=== PATIENT | female | born 1985 | race Caucasian/White ===

== ENCOUNTER → 2018-12-06 | Outpatient (CLI) | payer MEDICAID ==
[2018-12-06 15:19] LABS: BASO % 0.4 % (0.0-1.0); EOS # 0.2 10^3/uL (0.0-0.5); EOS % 2.1 % (0.0-3.0); HEMATOCRIT 41.1 % (36.0-47.0); HEMOGLOBIN 13.8 g/dl (12.0-15.5); LYMPH # 2.6 10^3/uL (1.5-5.0); LYMPH % 34.9 % (24.0-44.0); MEAN CORPUSCULAR HEMOGLOBIN 31.9 pg (27.0-33.0); MEAN CORPUSCULAR HGB CONC 33.6 g/dl (32.0-36.5); MEAN CORPUSCULAR VOLUME 95.1 fl (80.0-96.0); MONO # 0.7 10^3/uL (0.0-0.8); MONO % 9.7 % (0.0-5.0); NEUTROPHILS # 3.9 10^3/uL (1.5-8.5); PLATELET COUNT, AUTOMATED 144 10^3/uL (150-450); RED BLOOD COUNT 4.32 10^6/uL (4.00-5.40); WHITE BLOOD COUNT 7.5 10^3/uL (4.0-10.0)
[2018-12-06 15:54] LABS: ALBUMIN 3.2 GM/DL (3.2-5.2); ALT/SGPT 299 U/L (12-78); BILIRUBIN,TOTAL 0.3 MG/DL (0.2-1.0); BLOOD UREA NITROGEN 16 MG/DL (7-18); CALCIUM LEVEL 8.4 MG/DL (8.5-10.1); CARBON DIOXIDE LEVEL 27 MEQ/L (21-32); CHLORIDE LEVEL 108 MEQ/L (98-107); CREATININE FOR GFR 0.63 MG/DL (0.55-1.30); GLOMERULAR FILTRATION RATE > 60.0 (>60); GLUCOSE, FASTING 83 MG/DL (70-100); SODIUM LEVEL 143 MEQ/L (136-145); THYROID STIMULATING HORMONE 0.521 uIU/ML (0.358-3.740); TOTAL PROTEIN 6.3 GM/DL (6.4-8.2)
== END ==
LOC: M LAB 14:00
PROVIDERS: ATTEND Nurse Practitioner Family
DX: F11.20 Opioid dependence, uncomplicated (principal)

== ENCOUNTER → 2019-07-11 | Outpatient (CLI) | payer MEDICAID, OTHER ==
[~2019-07-11] MED LIST: BUPR1FIL5; BUSP30TA; BUSP30TA PO; ESCI20TA16; ESCI20TA16 PO; FERR325T3 PO; OLAN15TA; OLAN15TA PO; OMEP-218 PO; ONDA-83; ONDA-83 PO; PANT40TA29 PO; SUBO2MIS SL; SUBO8MIS SL; SUCR1TA PO; VITACHTA PO
[2019-07-11 15:13] LABS: HEMATOCRIT 37.4 % (36.0-47.0); HEMOGLOBIN 12.3 g/dl (12.0-15.5); MEAN CORPUSCULAR HGB CONC 32.9 g/dl (32.0-36.5); MEAN CORPUSCULAR VOLUME 91.2 fl (80.0-96.0); PLATELET COUNT, AUTOMATED 170 10^3/uL (150-450); WHITE BLOOD COUNT 6.6 10^3/uL (4.0-10.0)
[2019-07-11 15:24] LABS: ALBUMIN 3.4 GM/DL (3.2-5.2); ALT/SGPT 358 U/L (12-78); BILIRUBIN,TOTAL 0.3 MG/DL (0.2-1.0); BLOOD UREA NITROGEN 19 MG/DL (7-18); CARBON DIOXIDE LEVEL 27 MEQ/L (21-32); CHLORIDE LEVEL 107 MEQ/L (98-107); CREATININE FOR GFR 0.76 MG/DL (0.55-1.30); GLOMERULAR FILTRATION RATE > 60.0 (>60); GLUCOSE, FASTING 113 MG/DL (70-100); POTASSIUM SERUM 4.1 MEQ/L (3.5-5.1); SODIUM LEVEL 141 MEQ/L (136-145); TOTAL PROTEIN 6.8 GM/DL (6.4-8.2)
[2019-07-11 16:59] LABS: CHLAMYDIA DNA AMPLIFICATION NEGATIVE (NEGATIVE); GC DNA AMPLIFICATION NEGATIVE (NEGATIVE)
[2019-07-11 19:13] LABS: HCG, SERUM QUALITATIVE NEGATIVE (NEGATIVE)
--- NOTE | 2019-07-11 19:20 | ECGEPIP ---
[facility] Test Date: 2019-07-11 Pat Name: JERRY PROCTOR Department: Room: - Gender: Female Exhibits Manager: MIYA : 1985 Requested By: Wesley Hernandez Order Number: [id number] Reading MD: Raine Chopra Measurements Intervals [place] Rate: 70 P: 27 KS: 154 QRS: 44 QRSD: 92 T: 18 QT: 396 QTc: 428 Interpretive Statements SINUS RHYTHM NO PRIOR Electronically Signed on 07-11-2019 19:19:49 EDT by Raine Chopra
[2019-07-12 10:09] LABS: HEPATITIS B SURFACE ANTIGEN NEGATIVE (NEGATIVE)
[2019-07-12 10:37] LABS: HIV 1&2 SCREEN CENTAUR NEGATIVE (NEGATIVE)
[2019-07-12 10:45] LABS: HEPATITIS C VIRUS ABY INDEX > 11.0 INDEX (<0.8)
== END ==
LOC: M LAB 14:14
PROVIDERS: ATTEND Family Medicine
DX: F11.20 Opioid dependence, uncomplicated (principal)

== ENCOUNTER → 2019-07-25 | Outpatient (REF) | payer OTHER, MEDICAID ==
[2019-07-25 18:58] LABS: BASO % 0.3 % (0.0-1.0); EOS # 0.1 10^3/uL (0.0-0.5); EOS % 1.2 % (0.0-3.0); HEMATOCRIT 37.3 % (36.0-47.0); HEMOGLOBIN 12.3 g/dl (12.0-15.5); LYMPH # 2.5 10^3/uL (1.5-5.0); LYMPH % 32.7 % (24.0-44.0); MONO # 0.7 10^3/uL (0.0-0.8); MONO % 9.2 % (0.0-5.0); NEUTROPHILS # 4.2 10^3/uL (1.5-8.5); NEUTROPHILS % 56.2 % (36.0-66.0); PLATELET COUNT, AUTOMATED 178 10^3/uL (150-450); WHITE BLOOD COUNT 7.5 10^3/uL (4.0-10.0)
[2019-07-25 19:02] LABS: ALBUMIN 3.6 GM/DL (3.2-5.2); ALT/SGPT 285 U/L (12-78); BILIRUBIN,TOTAL 0.3 MG/DL (0.2-1.0); BLOOD UREA NITROGEN 15 MG/DL (7-18); CALCIUM LEVEL 9.1 MG/DL (8.5-10.1); CARBON DIOXIDE LEVEL 29 MEQ/L (21-32); CHLORIDE LEVEL 108 MEQ/L (98-107); GLOMERULAR FILTRATION RATE > 60.0 (>60); GLUCOSE, FASTING 93 MG/DL (70-100); POTASSIUM SERUM 4.2 MEQ/L (3.5-5.1); SODIUM LEVEL 145 MEQ/L (136-145); TOTAL PROTEIN 7.2 GM/DL (6.4-8.2)
== END ==
LOC: M LAB REF 18:14
PROVIDERS: ATTEND Family Medicine Addiction Medicine
DX: B18.2 Chronic viral hepatitis C (principal)

== ENCOUNTER 2019-11-15 22:23 | Inpatient (IN) | payer MEDICAID, OTHER ==
[~2019-11-15] VITALS: Ht 157.5 cm; Wt 122.3 kg
[2019-11-15] MEDS ORDERED: OLAN15TA (22:33)
[2019-11-15] MEDS ORDERED: ONDA-83 (22:33)
[2019-11-15] MEDS ORDERED: ESCI20TA (22:33)
[2019-11-15] MEDS ORDERED: BUSP30TA (22:33)
[2019-11-15] MEDS ORDERED: BUPR1FIL5 (22:33)
[2019-11-16] VITALS (21 sets, daily range): BP systolic 90–146; BP diastolic 44–82
[2019-11-16] MEDS: ALBUTEROL 90 MCG/ACT 8GM HFA INHALER INH SCH ×2 (00:02→00:36)
[2019-11-16 00:24] LABS: AMPHETAMINES LEVEL URINE NEGATIVE (NEGATIVE); BARBITURATES URINE NEGATIVE (NEGATIVE); BENZODIAZEPINES URINE NEGATIVE (NEGATIVE); CANNABINOIDS URINE POSITIVE (NEGATIVE); COCAINE METABOLITE URINE NEGATIVE (NEGATIVE); METHADONE URINE NEGATIVE (NEGATIVE); OPIATES URINE NEGATIVE (NEGATIVE); PHENCYCLIDINE URINE NEGATIVE (NEGATIVE)
[2019-11-16 00:40] LABS: ALT/SGPT 104 U/L (12-78); BASO % 0.1 % (0.0-1.0); BILIRUBIN,DIRECT 0.2 MG/DL (0.0-0.2); BILIRUBIN,TOTAL 0.3 MG/DL (0.2-1.0); BLOOD UREA NITROGEN 16 MG/DL (7-18); CALCIUM LEVEL 8.7 MG/DL (8.5-10.1); CARBON DIOXIDE LEVEL 28 MEQ/L (21-32); CHLORIDE LEVEL 106 MEQ/L (98-107); CK-MB VALUE MASS 1.8 NG/ML (<3.6); CPK CREATINE PHOSPHOKINASE 96 U/L (26-192); CREATININE FOR GFR 0.64 MG/DL (0.55-1.30); EOS # 0.2 10^3/uL (0.0-0.5); GLOMERULAR FILTRATION RATE > 60.0 (>60); GLUCOSE, FASTING 110 MG/DL (70-100); LIPASE 62 U/L (73-393); LYMPH # 3.1 10^3/uL (1.5-5.0); LYMPH % 35.9 % (24.0-44.0); MB/CK RELATIVE INDEX 1.88 (< OR =4); MEAN CORPUSCULAR HEMOGLOBIN 17.8 pg (27.0-33.0); MEAN CORPUSCULAR HGB CONC 26.3 g/dl (32.0-36.5); MEAN CORPUSCULAR VOLUME 67.8 fl (80.0-96.0); MONO # 0.9 10^3/uL (0.0-0.8); MONO % 10.2 % (0.0-5.0); NEUTROPHILS # 4.4 10^3/uL (1.5-8.5); NEUTROPHILS % 51.3 % (36.0-66.0); NT-PRO BNP 118 PG/ML (<125); PLATELET COUNT, AUTOMATED 149 10^3/uL (150-450); POTASSIUM SERUM 3.9 MEQ/L (3.5-5.1); RED BLOOD COUNT 2.58 10^6/uL (4.00-5.40); SODIUM LEVEL 139 MEQ/L (136-145); TOTAL PROTEIN 6.7 GM/DL (6.4-8.2); TROPONIN I 0.02 NG/ML (< 0.10); WHITE BLOOD COUNT 8.6 10^3/uL (4.0-10.0)
[2019-11-16 00:49] LABS: HEMOGLOBIN 4.6 g/dl (12.0-15.5)
[2019-11-16 00:50] LABS: HEMATOCRIT 17.5 % (36.0-47.0)
--- NOTE | 2019-11-16 01:21 | REPVR ---
PROCEDURE INFORMATION: Exam: XR Chest, 1 View Exam date and time: 11/16/2019 12:07 AM Age: 34 years old Clinical indication: Other: SOB TECHNIQUE: Imaging protocol: XR of the chest Views: 1 view. COMPARISON: No relevant prior studies available. FINDINGS: Lungs: Unremarkable. No consolidation. Pleural space: Unremarkable. No pleural effusion. No pneumothorax. Heart/Mediastinum: Unremarkable. No cardiomegaly. Bones/joints: Unremarkable. IMPRESSION: No acute findings. Electronically signed by: Dennis Maldonado On 11/16/2019 01:20:40 AM
[2019-11-16 01:30] LABS: FERRITIN 4 NG/ML (8-252); HCG, SERUM QUALITATIVE NEGATIVE (NEGATIVE); IRON (FE) 13 UG/DL (50-170); PERCENT SATURATION 2.4 % (13.2-45.0); TOTAL IRON BINDING CAPACITY 540 UG/DL (250-450)
[2019-11-16] MEDS ORDERED: ESCI20TA PO (01:37)
[2019-11-16] MEDS ORDERED: VITACHTA PO (01:37)
[2019-11-16] MEDS ORDERED: SUBO2MIS SL ×2 (01:37→01:38)
[2019-11-16] MEDS ORDERED: OMEP-218 PO (01:37)
[2019-11-16] MEDS ORDERED: ONDA-83 PO (01:37)
[2019-11-16] MEDS ORDERED: OLAN15TA PO (01:37)
[2019-11-16] MEDS ORDERED: BUSP30TA PO (01:37)
[2019-11-16] MEDS ORDERED: NS 1,000 ML IV ONE (02:30)
[2019-11-16] MEDS ORDERED: ONDANSETRON 4MG/2ML VIAL IV PRN (02:30)
[2019-11-16] MEDS ORDERED: ACETAMINOPHEN TAB 650MG DOSE (2X325MG) PO PRN (02:30)
[2019-11-16] MEDS ORDERED: OLANZapine 10 MG TAB As Ordered ONE (03:27)
--- NOTE | 2019-11-16 03:30 | HPEPDOC ---
[facility] Medical History & Physical Date of Admission Nov 16, 2019 Date of Service: Nov 16, 2019 Attending Physician: TEENA RANDLE MD History and Physical CHIEF COMPLAINT: Shortness of breath HISTORY OF PRESENT ILLNESS: Patient is a 34 year old female presenting with a week long history of progressively worsening SOB, dyspnea on exertion, and fatigue along with nausea, non-bloody, intermittently bilious emesis 3-4x/day, loose watery, but sometimes black stool 5-6x/day. She has felt some relief with Zofran, notes that the emesis only occurs in the morning, denies regular daytime marijuana use. She states she has felt fatigued for months, but denies any hemoptysis, hematemesis, hematuria, or hematochezia. She states her last menstrual period was over a year ago after the of her 3rd son, at which time her H/H was 12/37. She presented to the ED today because she began to feel increasingly dizzy with occasional black spots in her vision so she had a friend drive her here. Hgb on admission was 4.6 so the hospitalist service was contacted for admission. PAST MEDICAL HISTORY: Hx of asthma Chronic Hep C Bipolar disorder Hx of opiate use disorder nicotine use disorder PAST SURGICAL HISTORY: [place] teeth removal CSx3 appendectomy tonsils/adenoidectomy SOCIAL HISTORY: Lives in [place], smokes 1 PPD, does not drink EtOH, admits to prior hx of opiate use but has not used in a year, admits to smoking marijuana nightly to help her sleep, denies any cocaine, PCP use. No hx of recent or foreign travel. FAMILY HISTORY: Father- Mother- Stroke at age 30 for unknown reasons, T2DM, HTN ALLERGIES: Please see below. REVIEW OF SYSTEMS: Constitutional: Denies fevers, chills, night sweats, or recent unexpected weight change HEENT: Denies Headaches, head trauma, No visual changes or eye pain, denies nose bleeds, or difficulty swallowing Cardiovascular: Denies chest pain, palpitations, or orthopnea Respiratory: Denies cough, wheezing, or shortness of breath GI: Denies nausea, vomiting, abdominal pain, diarrhea or constipation : Denies pain with urination or frequency Musculoskeletal: Denies joint pain or swelling Neuro / Psych: Denies muscle weakness or sensory loss Skin: Denies skin rashes HOME MEDICATIONS: Please see below. PHYSICAL EXAMINATION: VITAL SIGNS: See below GENERAL: Well appearing female sitting upright in bed in no acute distress HEENT: NC, AT, EOMI, no scleral icterus, poor dentition, dry mucous membranes, no pharyngeal erythema. NECK: No cervical or supraclavicular lymphadenopathy. No JVD. CARDIOVASCULAR: RRR, normal S1 and S2. No murmurs, gallops, rubs. LUNGS: CTAB with full breath sounds, no wheezes, crackles, or rhonchi. ABDOMEN: Obese, soft, non-tender, non-distended, bowel sounds present. No hepatosplenomegaly. No masses or eccymosis. No CVA tenderness. EXTREMITIES: Mild 1+ pitting edema bilaterally assisted up tibia's. SKIN: No rashes or skin changes. NEUROLOGICAL: No focal or sensory deficits. CN II-XII grossly intact. PSYCHIATRIC: Normal mood and affect. LABORATORY DATA: See below. IMAGIN11/16/2019 CXR: IMPRESSION: No acute findings. MICROBIOLOGY: Please see below. Assessment/Plan: #. Chronic blood loss anemia -Stool guaiac positive with hx of melena so likely upper GI bleed. -Hemodynamically stable, this is more likely to have happened over a long period of time. Urgent/emergent GI intervention is not necessary currently. -Will plan to transfuse 4 units PRBCs -IV protonix BID -Will obtain imaging of CT abd/pelvis to insure no other causes for GI hemorrhage like slow variceal hemorrhage from portal HTN/liver cirrhosis though it may just be as simple as PUD #. N/V -Etiology unclear not associated with meals and no associated abd discomfort,ddx includes: viral gastroenteritis, brain tumor, cyclic vomiting syndrome from marijuana use -Obtain CT head to r/o brain tumor given the timing of N/V -Zofran for symptom management -Clear liquid diet #. Dehydration -2/2 vomiting/diarrhea, patients blood pressure is stable, will give gentle IVF hydration -Zofran for symptoms #. Microcytic Anemia -Low iron and ferritin levels, likely from blood loss -Patient may require IV iron transfusion to build up her stores again on top of PO iron replacement. #. Premature menopause -HCG negative, this should be worked-up further outpatient #. Chronic Hep C -Diagnosed >1 year ago, elevated viral count as of 06/2019, working w/ [facility] to set up treatment. #. Transaminitis -See Hep C #. Bipolar disorder -Continue home olanzapine, lexapro, buspar #.Opiate use disorder -Unable to verify at this time if patient is still receiving suboxone from [facility], will leave to day team about whether to continue medication DVT prophylaxis: teds/seqs Vital Signs Vital Signs Date Time Temp Pulse Resp B/P (MAP) Pulse Ox O2 Delivery O2 Flow Rate FiO2 11/16/19 02:51 96.2 88 17 132/62 99 Room Air Laboratory Data Labs 24H Laboratory Tests 2 11/15/19 23:20: Urine Opiates Screen NEGATIVE, Urine Methadone Screen NEGATIVE, Urine Barbiturates Screen NEGATIVE, Urine Phencyclidine Screen NEGATIVE, Urine Amphetamines Screen NEGATIVE, Urine Benzodiazepines Screen NEGATIVE, Urine Cocaine Metabolite Screen NEGATIVE, Urine Cannabinoids Screen POSITIVEH 11/16/19 00:01: Immature Granulocyte % (Auto) 0.5, Neutrophils (%) (Auto) 51.3, Lymphocytes (%) (Auto) 35.9, Monocytes (%) (Auto) 10.2H, Eosinophils (%) (Auto) 2.0, Basophils (%) (Auto) 0.1, Neutrophils # (Auto) 4.4, Lymphocytes # (Auto) 3.1, Monocytes # (Auto) 0.9H, Eosinophils # (Auto) 0.2, Basophils # (Auto) 0.0, Nucleated Red Blood Cells % (auto) 0.2H, Anion Gap 5L, Glomerular Filtration Rate > 60.0, Calcium Level 8.7, Iron Level 13L, Total Iron Binding Capacity 540H, Transferrin % Saturation 2.4L, Ferritin 4L, Total Bilirubin 0.3, Direct Bilirubin 0.2, Aspartate Amino Transf (AST/SGOT) 95H, Alanine Aminotransferase (ALT/SGPT) 104H, Alkaline Phosphatase 77, Total Creatine Kinase 96, Creatine Kinase MB 1.8, Creatine Kinase MB Relative Index 1.88, Troponin I 0.02, ZW-Hgi-V-Type Natriuret ic Peptide 118, Total Protein 6.7, Albumin 3.0L, Albumin/Globulin Ratio 0.8L, Lipase 62L, Human Chorionic Gonadotropin, Qual NEGATIVE CBC/BMP Laboratory Tests 11/16/19 00:01 Microbiology Microbiology 11/15/19 Respiratory Virus Panel (PCR) (TAMARA) - Final, Complete Home Medications Scheduled Buprenorphine HCl/Naloxone HCl (Suboxone 2 mg-0.5 mg Sl Film) 1 Each Film, 1 STRIP SL DAILY Buspirone HCl (Buspirone HCl) 30 Mg Tablet, 30 MG PO BID Escitalopram Oxalate (Escitalopram Oxalate) 20 Mg Tablet, 20 MG PO DAILY Multivitamins (Child Chew Vitamin) 1 Each Tab.chew, 2 TAB PO DAILY Olanzapine (Olanzapine) 15 Mg Tablet, 15 MG PO QHS Omeprazole (Omeprazole) 20 Mg Capsule.dr, 20 MG PO DAILY Scheduled PRN Ondansetron HCl (Ondansetron HCl) 4 Mg Tablet, 4 MG PO BID PRN for NAUSEA Allergies Coded Allergies: Penicillins (Verified Allergy, Unknown, 11/15/19) HAD SINCE A BABY amoxicillin (Verified Allergy, Unknown, 11/15/19) HAD SINCE A BABY GME ATTESTATION GME ATTESTATION My faculty preceptor for this patient encounter was physically present during the encounter and was fully available. All aspects of the patient interview, examination, medical decision making process, and medical care plan development were reviewed and approved by the faculty preceptor. The faculty preceptor is aware and concurs with the plan as stated in the body of this note and will attest to such by his/her cosignature. ATTENDING NOTE I was present during the evaluation and examination of the patient by Dr. Hernández and we discussed her management as it is detailed above. Briefly, Ms. Fuller is a 34 yo W with a history of asthma, remote history of anemia, bipolar disorder, PSUD, untreated HCV with high viremia and chronic transaminitis who presented with exertional dyspnea, N/V/D and found to have symptomatic anemia with profound iron deficiency with evidence of likely a slow UGIB with +guaiac and reported melena. JHON HERNÁNDEZ DO Nov 16, 2019 03:30 TEENA RANDLE MD Nov 16, 2019 06:24
[2019-11-16] MEDS: OLANZapine 5 MG TAB PO SCH ×2 (03:39→20:28)
--- NOTE | 2019-11-16 05:29 | REPVR ---
PROCEDURE INFORMATION: Exam: CT Head Without Contrast Exam date and time: 11/16/2019 2:18 AM Age: 34 years old Clinical indication: Other: N&V; Additional info: N/v R/O brain tumor TECHNIQUE: Imaging protocol: Computed tomography of the head without contrast. Radiation optimization: All CT scans at this facility use at least one of these dose optimization techniques: automated exposure control; mA and/or kV adjustment per patient size (includes targeted exams where dose is matched to clinical indication); or iterative reconstruction. COMPARISON: No relevant prior studies available. FINDINGS: Brain: Normal. No hemorrhage. Unremarkable white matter. No mass effect. Ventricles: No ventriculomegaly. Bones/joints: Unremarkable. No acute fracture. Paranasal sinuses: Visualized sinuses are unremarkable. No fluid levels. Mastoid air cells: Visualized mastoid air cells are well aerated. Soft tissues: Unremarkable. IMPRESSION: No acute intracranial abnormality. Electronically signed by: Dennis Maldonado On 11/16/2019 05:28:21 AM
--- NOTE | 2019-11-16 05:33 | REPVR ---
PROCEDURE INFORMATION: Exam: CT Abdomen And Pelvis Without Contrast Exam date and time: 11/16/2019 2:18 AM Age: 34 years old Clinical indication: Nausea and vomiting; Additional info: N/v R/O brain tumor TECHNIQUE: Imaging protocol: Computed tomography of the abdomen and pelvis without contrast. Radiation optimization: All CT scans at this facility use at least one of these dose optimization techniques: automated exposure control; mA and/or kV adjustment per patient size (includes targeted exams where dose is matched to clinical indication); or iterative reconstruction. COMPARISON: No relevant prior studies available. FINDINGS: Lungs: Mild compressive atelectasis in the bilateral medial lower lobes. Calcified granuloma at the right base. Mediastinal space: Large hiatal hernia. Liver: Mild hepatomegaly. Gallbladder and bile ducts: Normal. No calcified stones. No ductal dilation. Pancreas: Normal. No ductal dilation. Spleen: Normal. No splenomegaly. Adrenals: Normal. No mass. Kidneys and ureters: Normal. No hydronephrosis. Stomach and bowel: Unremarkable. No obstruction. No mucosal thickening. Appendix: No evidence of appendicitis. Intraperitoneal space: Unremarkable. No free air. No significant fluid collection. Vasculature: Unremarkable. No abdominal aortic aneurysm. Lymph nodes: Unremarkable. No enlarged lymph nodes. Bladder: Distended urinary bladder. Reproductive: Unremarkable as visualized. Bones/joints: Mild multilevel degenerative disease of the thoracic spine. Soft tissues: Small fat containing umbilical hernia. IMPRESSION: Large hiatal hernia. Mild hepatomegaly. Electronically signed by: Dennis Maldonado On 11/16/2019 05:33:29 AM
[2019-11-16] MEDS: ESCITALOPRAM OXALATE 10 MG TAB (LEXAPRO) PO SCH (08:53)
[2019-11-16] MEDS: busPIRone 10 MG TAB PO SCH ×2 (08:53→20:28)
[2019-11-16] MEDS: PANTOPRAZOLE 40MG VIAL (C9113 PER 1) IV SCH ×2 (08:53→20:27)
[2019-11-16 09:22] LABS: HEMATOCRIT 24.2 % (36.0-47.0); MEAN CORPUSCULAR HEMOGLOBIN 20.9 pg (27.0-33.0); MEAN CORPUSCULAR HGB CONC 28.5 g/dl (32.0-36.5); MEAN CORPUSCULAR VOLUME 73.3 fl (80.0-96.0); PLATELET COUNT, AUTOMATED 125 10^3/uL (150-450)
[2019-11-16 09:37] LABS: HEMOGLOBIN 6.9 g/dl (12.0-15.5)
[2019-11-16 09:39] LABS: ALT/SGPT 98 U/L (12-78); BILIRUBIN,TOTAL 0.8 MG/DL (0.2-1.0); BLOOD UREA NITROGEN 12 MG/DL (7-18); CALCIUM LEVEL 8.5 MG/DL (8.5-10.1); CARBON DIOXIDE LEVEL 25 MEQ/L (21-32); CHLORIDE LEVEL 109 MEQ/L (98-107); CREATININE FOR GFR 0.58 MG/DL (0.55-1.30); GLOMERULAR FILTRATION RATE > 60.0 (>60); GLUCOSE, FASTING 91 MG/DL (70-100); POTASSIUM SERUM 4.2 MEQ/L (3.5-5.1); SODIUM LEVEL 141 MEQ/L (136-145); TOTAL PROTEIN 6.5 GM/DL (6.4-8.2)
[2019-11-16] MEDS ORDERED: SUBO8MIS SL (10:48)
[2019-11-16] MEDS: SUCRALFATE 1 GM TAB PO SCH ×3 (13:03→20:28)
--- NOTE | 2019-11-16 15:17 | IPNPDOC ---
Text Note Date of Service The patient was seen on 11/16/19. NOTE HPI: Ms. Fuller is a 34 yo Female that presented to the ED with complaints of dyspnea, fatigue, nausea, vomiting and diarrhea. SUBJECTIVE: Pt was seen in the ED awaiting admission. She states that she is feeling a little less fatigued than when she came in and that she has no nausea, vomiting, diarrhea, or shortness of breath. Pt is receiving her 4th unit of PRBCs. She also denies headache, fever, or chills. OBJECTIVE: VITAL SIGNS: please see below. GENERAL: Pt seen laying on stretcher in no acute distress but somnolent. HEENT: NC, AT, no scleral icterus, mucous membranes moist and pale, no pharyngeal erythema, poor dentition. CV: Regular rhythm, bradycardic at 50 bpm, no murmurs, rubs, or gallops. RESP: CTAB, no rales, rhonchi, or wheezes. ABDOMEN: Soft, obese, nontender, nondistended, bowel sounds present . EXTREMITIES: no bruising, non pitting edema of BL lower legs. PSYCH: Normal mood and affect. LABORATORY: please see below. MICROBIOLOGY: - RESPIRATORY PANEL (11/16/2019): Negative. IMAGING: -CXR (11/15/2019): Impression "No acute findings." -HEAD CT without contrast (11/16/2019): Impression "No acute intracranial abnormality." -CT ABD/PELVIS without contrast (11/16/2019): Impression "Large hiatal hernia. Mild hepatomegaly." ASSESSMENT/PLAN: Ms. Fuller is a 34 yo Female with a PMHx of asthma, chronic hepatitis C, bipolar disorder, nicotine use, marijuana use, and a history of opiate use, who presented to the ED complaining of shortness of breath, nausea, vomiting, and diarrhea, and was found to be severely anemic concerning for blood loss. #. Symptomatic microcytic anemia 2/2 to iron deficiency due to blood loss in diarrhea. -Stool guaiac positive and pt reported dark stools -Pt received 4 units of PRBCs -Dr. Denise consulted and suggested a scope but the patient refused, so Camelia ordered sucralfate and to monitor labs and if patient is stable, to follow up with him outpatient. -Continue to monitor labs. #. Nausea and vomiting. -Head CT ruled out brain tumor. Ddx still includes cyclic vomiting syndrome from marijuana vs viral gastroenteritis vs PUD. -Symptoms managed with zofran. -Clear liquid diet. #. Shortness of breath 2/2 to severe anemia vs asthma. -Pt does not report shortness of breath right now. -Pt states that she has used a nebulizer and rescue inhaler in the past but not recently because she "lost them" or "ran out of them." -Lungs CTAB, no wheezing. -Correcting anemia with PRBCs. -Continue to monitor. #. Dehydration 2/2 to vomiting and diarrhea. -BP is stable after IVF bolus and PRBC infusion. -Zofran for symptoms. #. Premature menopause -Requires further workup outpatient. -HCG negative. #. Chronic Hepatitis C -Pt working with [facility] to start treatment. #. Bipolar disorder -Continue home olanzapine, lexapro, buspar. #. Hx of opiate use disorder -Unable to obtain med history/dosage from [facility]. -Once patient admitted on floor will ask her to sign a release so that we can get that information. DVT Prophylaxis: TEDs and sequentials. GI Prophylaxis: IV Protonix BID. VS,Fishbone, I+O VS, Fishbone, I+O Laboratory Tests 11/16/19 00:01 11/16/19 08:44 Vital Signs Date Time Temp Pulse Resp B/P (MAP) Pulse Ox O2 Delivery O2 Flow Rate FiO2 11/16/19 13:00 97.0 56 16 115/57 98 Room Air I&O- Last 24 Hours up to 6 AM 11/16/19 06:00 Intake Total 400 ml Balance 400 ml GME ATTESTATION GME ATTESTATION My faculty preceptor for this patient encounter was physically present during the encounter and was fully available. All aspects of the patient interview, examination, medical decision making process, and medical care plan development were reviewed and approved by the faculty preceptor. The faculty preceptor is aware and concurs with the plan as stated in the body of this note and will attest to such by his/her cosignature. ATTENDING NOTE Pt was seen and examined by me personally with the residents/students. Agree with the above assessment plan. FIFI CERVANTES OMS-3 Nov 16, 2019 15:17 WILLIAM HERNANDEZ MD Nov 24, 2019 10:29
[2019-11-16 15:50] LABS: VITAMIN B12 LEVEL 574 PG/ML (247-911)
[2019-11-16 15:51] LABS: FOLATE 20.2 NG/ML (>5.4)
[2019-11-16 19:01] LABS: HEMATOCRIT 27.7 % (36.0-47.0); HEMOGLOBIN 8.3 g/dl (12.0-15.5)
[2019-11-17] VITALS: BP 159/88
[2019-11-17 04:00] VITALS: BP 138/61
[2019-11-17 07:40] LABS: HEMATOCRIT 31.5 % (36.0-47.0); HEMOGLOBIN 9.3 g/dl (12.0-15.5); MEAN CORPUSCULAR HEMOGLOBIN 22.4 pg (27.0-33.0); MEAN CORPUSCULAR HGB CONC 29.5 g/dl (32.0-36.5); MEAN CORPUSCULAR VOLUME 75.7 fl (80.0-96.0); PLATELET COUNT, AUTOMATED 132 10^3/uL (150-450); RED BLOOD COUNT 4.16 10^6/uL (4.00-5.40); WHITE BLOOD COUNT 7.1 10^3/uL (4.0-10.0)
[2019-11-17 08:00] VITALS: BP 142/72
[2019-11-17 08:09] LABS: ALBUMIN 3.2 GM/DL (3.2-5.2); ALT/SGPT 115 U/L (12-78); BILIRUBIN,TOTAL 0.7 MG/DL (0.2-1.0); BLOOD UREA NITROGEN 12 MG/DL (7-18); CARBON DIOXIDE LEVEL 29 MEQ/L (21-32); CHLORIDE LEVEL 109 MEQ/L (98-107); CREATININE FOR GFR 0.66 MG/DL (0.55-1.30); GLOMERULAR FILTRATION RATE > 60.0 (>60); GLUCOSE, FASTING 91 MG/DL (70-100); POTASSIUM SERUM 3.8 MEQ/L (3.5-5.1); SODIUM LEVEL 138 MEQ/L (136-145); TOTAL PROTEIN 7.1 GM/DL (6.4-8.2)
--- NOTE | 2019-11-17 08:47 | IPNPDOC ---
Text Note Date of Service The patient was seen on 11/17/19. NOTE HPI: Ms. Fuller is a 34 yo F that presented to the ED with complaints of petey rtness of breath, nausea, and diarrhea and was found to be very anemic. SUBJECTIVE: No acute events overnight. Pt states that she is feeling ok and she got a decent night's sleep. She denies any shortness of breath, nausea, vomiting, or diarrhea. She has received 4 units of PRBCs. She states that she is ambulating well without weakness or dizziness. She says she does not recall talking to the surgeon about endoscopy/colonoscopy yesterday, but states that if it is necessary she is willing to do it. OBJECTIVE: VITAL SIGNS: please see below. GENERAL: pt appears lying comfortably in bed in no acute distress. HEENT: NC, AT, EOMI, no scleral icterus, no pharyngeal erythema. NECK: no JVD or lymphadenopathy appreciated. CV: RRR, no murmurs, rubs, or gallops appreciated. RESP: CTAB, no rales, rhonchi, or wheezes. ABDOMEN: soft, obese, nontender, nondistended EXTREMITIES: non pitting edema BL lower extremities, no other swelling or edema PSYCH: Normal mood and affect. LABORATORY: please see below. MICROBIOLOGY: -Respiratory virus panel (11/15/2019): Negative. IMAGING: -CXR (11/15/2019): Impression "No acute findings." -HEAD CT without contrast (11/16/2019): Impression "No acute intracranial abnormality." -CT ABD/PELVIS without contrast (11/16/2019): Impression "Large hiatal hernia. Mild hepatomegaly." ASSESSMENT/PLAN: Ms. Fuller is a 34 yo F with a PMHx of asthma, chronic hepa titis C, bipolar disorder, nicotine use, marijuana use, and a history of opiate use, who presented to the ED complaining of shortness of breath, nausea, vomiting, and was found to be severely anemic concerning for blood loss. #. Symptomatic microcytic anemia 2/2 to iron deficiency due to blood loss in diarrhea. -Stool guaiac positive and pt reported dark stools. -Pt received 4 units PRBCs. -As per Camelia, if H&H remain stable possible follow up outpatient. -Continue to monitor labs. -Hgb 9.3 Hct 31.5 #. Nausea and vomiting. -Head CT ruled out brain tumor. Ddx includes cyclic vomiting syndrome from marijuana use vs viral gastroenteritis vs PUD. -Symptoms managed with Zofran. -Clear liquid diet. #. Shortness of breath 2/2 to severe anemia vs asthma. -Pt denies current shortness of breath. -Lungs CTAB, no wheezing. -Correcting anemia with PRBCs. -Continue to monitor. #. Dehydration 2/2 to vomiting and diarrhea. -BP is stable. -Zofran for symptoms. #. Premature menopause -Requires further workup outpatient. -HCG negative. #. Chronic Hepatitis C -Pt working with [facility] to start treatment. #. Bipolar disorder -Continue home olanzapine, lexapro, and buspar. #. Hx of opiate use disorder. -Work on obtaining record from [facility]. DVT Prophylaxis: TEDs and sequentials. GI Prophylaxis: IV Protonix BID. DISPOSITION: Discharge home once medically cleared. VS,Fishbone, I+O VS, Fishbone, I+O Laboratory Tests 11/16/19 08:44 11/16/19 18:44 11/17/19 07:26 Vital Signs Date Time Temp Pulse Resp B/P (MAP) Pulse Ox O2 Delivery O2 Flow Rate FiO2 11/17/19 04:00 97.3 61 18 138/61 (86) 97 Room Air I&O- Last 24 Hours up to 6 AM 11/17/19 06:00 Intake Total 2215 ml Output Total 700 ml Balance 1515 ml GME ATTESTATION GME ATTESTATION My faculty preceptor for this patient encounter was physically present during the encounter and was fully available. All aspects of the patient interview, examination, medical decision making process, and medical care plan development were reviewed and approved by the faculty preceptor. The faculty preceptor is aware and concurs with the plan as stated in the body of this note and will attest to such by his/her cosignature. FIFI CERVANTES OMS-3 Nov 17, 2019 08:32
[2019-11-17] MEDS: SUCRALFATE 1 GM TAB PO SCH ×2 (09:26→12:00)
[2019-11-17] MEDS: PANTOPRAZOLE 40MG VIAL (C9113 PER 1) IV SCH (09:26)
[2019-11-17] MEDS: busPIRone 10 MG TAB PO SCH (09:26)
[2019-11-17] MEDS: ESCITALOPRAM OXALATE 10 MG TAB (LEXAPRO) PO SCH (09:26)
[2019-11-17] MEDS ORDERED: SUCR1TA PO (10:44)
[2019-11-17] MEDS ORDERED: PANT40TA29 PO (10:44)
[2019-11-17] MEDS ORDERED: FERR325T3 PO (10:45)
--- NOTE | 2019-11-17 10:58 | IPNPDOC ---
Text Note Date of Service The patient was seen on 11/17/19. NOTE No acute events overnight. No complaints this am. Denies any nausea, emesis, SOB, or pains. No BM since admission. VSSAF NAD abd - soft, nt, nd labs - below A) 34y/o female with melanotic stool and chronic GI bleed likely secondary to PUD P) hgb has stabilized with 4 units, and there are no current signs of bleeding. I recommend d/c home, and follow up in office for outpatient scopes continue PPI as outpatient daily, and I encouraged her to stop caffeine, nicotine, and to take all her meds with food in her stomach. Follow up in office. Polo Denise VS,Daryn, I+O VS, Daryn I+O Laboratory Tests 11/16/19 18:44 11/17/19 07:26 Vital Signs Date Time Temp Pulse Resp B/P (MAP) Pulse Ox O2 Delivery O2 Flow Rate FiO2 11/17/19 08:00 98.5 72 19 142/72 (95) 94 Room Air I&O- Last 24 Hours up to 6 AM 11/17/19 06:00 Intake Total 2215 ml Output Total 700 ml Balance 1515 ml CASIMIRO DENISE DO Nov 17, 2019 10:58
--- NOTE | 2019-11-17 11:32 | DS.PDOC ---
Discharge Summary General Date of Admission Nov 16, 2019 at 01:49 Date of Discharge Nov 17, 2019 Attending Physician: WILLIAM HERNANDEZ MD Specialist/Consultants Involve: CASIMIRO DENISE DO Discharge Summary PROCEDURES PERFORMED DURING STAY: None. ADMITTING DIAGNOSES/DISCHARGE DIAGNOSES: 1. Symptomatic anemia 2. Chronic Hep C 3. Bipolar disorder 4. Hx of opiate use disorder 5. Nicotine use disorder 6. Asthma COMPLICATIONS/CHIEF COMPLAINT: Symptomatic Anemia. HISTORY OF PRESENT ILLNESS: Pt is a 34 yo F that presented to the ED with a week long history of worsening shortness of breath, dyspnea on exertion, fatigue, nausea, bilious emesis 3-4x/day, and loose watery "black" stools 5-6x/day. She stated that the fatigue has been present for a couple of months now. On day of presentation she felt increasingly dizzy and had occasional black spots in her vision so her friend drove her to the ED. Her last menstrual period was about 1 yr ago after her 3rd son was born. She denied any hemoptysis, hematemesis, hematuria, or hematochezia. Her Hgb was 4.6 and Hct 17.5. HOSPITAL COURSE/DISCHARGE PLAN: Pt was given 4 units PRBCs in the ED and her Hgb improved from 4.6 to 6.9 to 8.3. She did not have any episodes of vomiting or diarrhea while in the ED or while admitted. Stool guaiac was positive. Dr. Denise was consulted and came to the agreement with the patient that if her H&H remained stable he would hold off on any scope procedure and he started pt on sucralfate. Pt's nausea was controlled with Zofran. Her labs have remained stable, with a Hgb of 9.3 and Hct of 31.5 this morning (11/17/2019 at 07:26). Pt will be started on oral iron supplements as well as a PPI. Pt was advised to quit smoking, avoid caffeine and spicy foods. Pt to follow up with surgery outpatient as well as her PCP. DISCHARGE MEDICATIONS: Please see below. ALLERGIES: Please see below. PHYSICAL EXAMINATION ON DISCHARGE: VITAL SIGNS: Please see below. GENERAL: Pt appears lying comfortably in bed in no acute distress. HEENT: AT, NC, EOMI, no scleral icterus, no pharyngeal erythema. NECK: No JVD or lymphadenopathy appreciated. CARDIOVASCULAR EXAMINATION: RRR, no murmurs, rubs, or gallops, +S1 and S2. RESPIRATORY EXAMINATION: CTAB, no rales, rhonchi, or wheezes. ABDOMINAL EXAMINATION: soft, obese, nontender, nondistended, bowel sounds present all 4 quadrants. EXTREMITIES: No swelling or edema. SKIN: no new rashes or erythema. NEUROLOGICAL EXAMINATION: AAOx3, CN II-XII grossly intact PSYCHIATRIC EXAMINATION: Normal mood and affect. LABORATORY DATA: Please see below. IMAGING: -CXR (11/15/2019): Impression "No acute findings." -HEAD CT without contrast (11/16/2019): Impression "No acute intracranial abnormality." -CT ABD/PELVIS without contrast (11/16/2019): Impression "Large hiatal hernia. Mild hepatomegaly." PROGNOSIS: Good. ACTIVITY: As tolerated. DIET: Low fat, low cholesterol. DISPOSITION: Discharge home. DISCHARGE INSTRUCTIONS: 1. Follow up with PCP within 7 days. 2. Follow up with Dr. Denise within 7 days. 3. Return to hospital if symptoms return. DISCHARGE CONDITION: Stable. TIME SPENT ON DISCHARGE: Greater than 30 minutes. Vital Signs/I&Os Vital Signs Date Time Temp Pulse Resp B/P (MAP) Pulse Ox O2 Delivery O2 Flow Rate FiO2 11/17/19 08:00 98.5 72 19 142/72 (95) 94 Room Air I&O- Last 24 Hours up to 6 AM 11/17/19 06:00 Intake Total 2215 ml Output Total 700 ml Balance 1515 ml Laboratory Data Labs 24H Laboratory Tests 2 11/17/19 07:26: Nucleated Red Blood Cells % (auto) 0.0, Anion Gap 0L, Glomerular Filtration Rate > 60.0, Calcium Level 9.0, Total Bilirubin 0.7, Aspartate Amino Transf (AST/SGOT) 122H, Alanine Aminotransferase (ALT/SGPT) 115H, Alkaline Phosphatase 69, Total Protein 7.1, Albumin 3.2, Albumin/Globulin Ratio 0.8L CBC/BMP Laboratory Tests 11/16/19 18:44 11/17/19 07:26 Microbiology Microbiology 11/15/19 Respiratory Virus Panel (PCR) (TAMARA) - Final, Complete Discharge Medications Scheduled Buprenorphine HCl/Naloxone HCl (Suboxone 2 mg-0.5 mg Sl Film) 1 Each Film, 2 STRIP SL DAILY, (Reported) 12MG TOTAL DAILY Buprenorphine HCl/Naloxone HCl (Suboxone 8 mg-2 mg Sl Film) 1 Each Film, 1 STRIP SL DAILY, (Reported) 12MG TOTAL DAILY Buspirone HCl (Buspirone HCl) 30 Mg Tablet, 30 MG PO BID, (Reported) Escitalopram Oxalate (Escitalopram Oxalate) 20 Mg Tablet, 20 MG PO DAILY, (Reported) Ferrous Sulfate (Ferrous Sulfate) 325 Mg Tablet.dr, 325 MG PO Q8H Multivitamins (Child Chew Vitamin) 1 Each Tab.chew, 2 TAB PO DAILY, (Reported) Olanzapine (Olanzapine) 15 Mg Tablet, 15 MG PO QHS, (Reported) Pantoprazole Sodium (Pantoprazole Sodium) 40 Mg Tablet.dr, 40 MG PO BID Sucralfate (Sucralfate) 1 Gm Tablet, 1 GM PO ACHS Scheduled PRN Ondansetron HCl (Ondansetron HCl) 4 Mg Tablet, 4 MG PO BID PRN for NAUSEA, (Reported) Allergies Coded Allergies: Penicillins (Verified Allergy, Unknown, 11/15/19) HAD SINCE A BABY amoxicillin (Verified Allergy, Unknown, 11/15/19) HAD SINCE A BABY GME ATTESTATION GME ATTESTATION My faculty preceptor for this patient encounter was physically present during the encounter and was fully available. All aspects of the patient interview, examination, medical decision making process, and medical care plan development were reviewed and approved by the faculty preceptor. The faculty preceptor is aware and concurs with the plan as stated in the body of this note and will attest to such by his/her cosignature. ATTENDING NOTE Pt was seen and examined by me personally with the residents/students. Agree with the above assessment plan. FIFI CERVANTES OMS-3 Nov 17, 2019 11:32 WILLIAM HERNANDEZ MD Nov 24, 2019 10:30
[2019-11-18] MEDS ORDERED: INFLUENZA QUADRIVALENT PF VACCINE 0.5ML SYRINGE IM ONE (09:00)
--- NOTE | 2019-11-18 11:30 | ECGEPIP ---
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
--- NOTE | 2019-11-26 16:22 | CR ---
DATE OF CONSULTATION: 11/16/2019 REASON FOR CONSULTATION: Gastrointestinal (GI) bleed. HISTORY OF PRESENT ILLNESS: Patient is a 34-year-old female who presents with a 2-day history of melanotic stools. She claims that she has been having progressive weakness and shortness of breath and just overall malaise for the past week. It has been getting gradually worse. She wakes up every morning and has bilious vomiting first thing when she wakes up in the morning. No other symptoms associated with that. No abdominal pains or problems with bowel movements. No blood in her emesis. Throughout the week that has been the same, and then the last couple of days her stools have turned from bluish and watery to black stools. Never had any bright red blood in her stool. Never had problems with vomiting or blood in her stools in the past. Last known hemoglobin was 12 about a year ago. She currently is 4.6 in the emergency room (ER). Hemodynamically, she is stable. No tachycardia. No hypotension. She denies any abdominal pains. No recent trauma. No changes with diet. No changes in medications or activities. MEDICAL HISTORY: 1. Asthma. 2. Hepatitis C. 3. Bipolar. 4. History of opiate use and marijuana usage. SURGICAL HISTORY: 1. [place] teeth removal. 2. section times three. 3 Appendectomy. 4. Tonsils and adenoid removal. SOCIAL HISTORY: Smokes a pack a day. smokes marijuana nightly. Denies drug or alcohol use. FAMILY HISTORY: Noncontributory. ALLERGIES: PENICILLIN. MEDICATIONS: Please see medication reconciliation. REVIEW OF SYSTEMS: Pertinent positives and negatives as stated in history of present illness (HPI). PHYSICAL EXAMINATION: GENERAL: Alert and oriented (A and O) times three. No acute distress. VITAL SIGNS: Temperature 97, pulse 60, respirations 16, blood pressure 94/48, pulse oximetry 98% on room air. HEENT: Pupils round and reactive to light and accommodation. HEART: S1, S2, regular rate and rhythm. LUNGS: Clear to auscultation bilaterally. ABDOMEN: Soft, obese, nontender, nondistended. EXTREMITIES: No clubbing, cyanosis, or edema. LABORATORY DATA: White count was 6, hemoglobin was 4.6 at midnight, up to 6.9 after 2 units of blood at 8 a.m. this morning, platelets 125. Potassium 4.2, creatinine 0.58. AST 95, ALT 98, albumin 3m total bilirubin 0.8. IMAGING: CT abdomen and pelvis was essentially negative other than a hiatal hernia. ASSESSMENT AND PLAN: Patient is a 34-year-old female with weakness, melanotic stools, and likely chronic blood loss anemia. If she had dropped from 12 to 4 within a short period of time, she would have had significant bright red bleeding. Also would have likely become hemodynamically unstable. At this time, her bleeding appears to be more of a chronic issue, likely related to some gastritis versus duodenitis versus peptic ulcer disease. At this point in time, she is hemodynamically stable, and she is not overly excited about having any type of endoscopy. I feel that an upper endoscopy may be diagnostic but nontherapeutic at this point, so I do not see any need to proceed with that emergently, and I do not feel a need for a colonoscopy either. I recommend to continue with Protonix. I will start her on some Carafate as well for a short period of time. Will monitor her hemoglobin. As long as it continues to remain stable, she can be discharged home once she is stable. She can see me in the office as an outpatient, and we can schedule her for elective outpatient upper endoscopy as an elective procedure. If she shows signs of continued bleeding or becomes hemodynamically unstable, then we will consider more urgent intervention. YSABEL
== END 2019-11-17 14:08 | disposition home or self-care (01) | DRG 663 ==
LOC: M ED 22:23 → M ED INP 11-16 01:49 → ENRESERVDT 11-16 02:29 → ENRESERVTM 11-16 02:29 → ENRESERV 11-16 13:47 → M PCU 11-16 15:59
PROVIDERS: ADMIT Internal Medicine; ATTEND Internal Medicine
PROC: 30233N1 Transfusion of Nonautologous Red Blood Cells into Peripheral Vein, Percutaneous Approach (ICD-10-PCS; principal; 2019-11-16)
DX: D50.0 Iron deficiency anemia secondary to blood loss (chronic) (principal); K27.4 Chronic or unspecified peptic ulcer, site unspecified, with hemorrhage; B18.2 Chronic viral hepatitis C; F17.200 Nicotine dependence, unspecified, uncomplicated; E28.319 Asymptomatic premature menopause; J45.909 Unspecified asthma, uncomplicated; R11.2 Nausea with vomiting, unspecified; M18.2 Bilateral post-traumatic osteoarthritis of first carpometacarpal joints; F31.9 Bipolar disorder, unspecified; Z90.49 Acquired absence of other specified parts of digestive tract; E86.0 Dehydration; Z79.899 Other long term (current) drug therapy; Z88.0 Allergy status to penicillin; K44.9 Diaphragmatic hernia without obstruction or gangrene

== ENCOUNTER → 2019-12-18 | Outpatient (REF) | payer OTHER, MEDICAID ==
[~2019-12-18] MED LIST changes: +ESCI20TA; +ESCI20TA PO; -ESCI20TA16; -ESCI20TA16 PO
[2019-12-18 17:47] LABS: BASO % 0.4 % (0.0-1.0); EOS # 0.1 10^3/uL (0.0-0.5); EOS % 1.7 % (0.0-3.0); HEMATOCRIT 43.4 % (36.0-47.0); HEMOGLOBIN 12.7 g/dl (12.0-15.5); LYMPH # 2.1 10^3/uL (1.5-5.0); LYMPH % 40.6 % (24.0-44.0); MEAN CORPUSCULAR HEMOGLOBIN 23.6 pg (27.0-33.0); MEAN CORPUSCULAR HGB CONC 29.3 g/dl (32.0-36.5); MEAN CORPUSCULAR VOLUME 80.8 fl (80.0-96.0); MONO # 0.5 10^3/uL (0.0-0.8); MONO % 9.3 % (0.0-5.0); NEUTROPHILS # 2.5 10^3/uL (1.5-8.5); NEUTROPHILS % 47.8 % (36.0-66.0); PLATELET COUNT, AUTOMATED 132 10^3/uL (150-450); RED BLOOD COUNT 5.37 10^6/uL (4.00-5.40); WHITE BLOOD COUNT 5.3 10^3/uL (4.0-10.0)
[2019-12-18 18:03] LABS: HEMOGLOBIN A1c 5.1 %
[2019-12-18 18:13] LABS: ALBUMIN 3.7 GM/DL (3.2-5.2); ALT/SGPT 214 U/L (12-78); BILIRUBIN,TOTAL 0.4 MG/DL (0.2-1.0); BLOOD UREA NITROGEN 11 MG/DL (7-18); CALCIUM LEVEL 9.1 MG/DL (8.5-10.1); CARBON DIOXIDE LEVEL 26 MEQ/L (21-32); CHLORIDE LEVEL 108 MEQ/L (98-107); CHOLESTEROL LEVEL 141 MG/DL (<200); CHOLESTEROL RISK RATIO 4.147 (<5); CREATININE FOR GFR 0.64 MG/DL (0.55-1.30); GLOMERULAR FILTRATION RATE > 60.0 (>60); GLUCOSE, FASTING 92 MG/DL (70-100); HDL CHOLESTEROL 34 MG/DL (>40); LDL CHOLESTEROL 92 MG/DL (<100); NON-HDL-C 107 MG/DL; POTASSIUM SERUM 4.6 MEQ/L (3.5-5.1); SODIUM LEVEL 140 MEQ/L (136-145); THYROID STIMULATING HORMONE 0.623 uIU/ML (0.358-3.740); TOTAL PROTEIN 7.6 GM/DL (6.4-8.2); TRIGLYCERIDES LEVEL 73 MG/DL (<150)
[2019-12-21 14:31] LABS: CHLAMYDIA DNA AMPLIFICATION NEGATIVE (NEGATIVE); GC DNA AMPLIFICATION NEGATIVE (NEGATIVE)
== END ==
LOC: M LAB REF 16:15
PROVIDERS: ATTEND Nurse Practitioner Family
DX: D64.9 Anemia, unspecified (principal); E66.9 Obesity, unspecified; Z13.9 Encounter for screening, unspecified; N91.2 Amenorrhea, unspecified

== ENCOUNTER 2020-01-06 13:56 | Emergency (ER) | payer MEDICAID, OTHER ==
[~2020-01-06] VITALS: Ht 157.5 cm; Wt 118.2 kg
[2020-01-06 15:33] VITALS: BP 105/67
--- NOTE | 2020-01-06 17:08 | ECGEPIP ---
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
== END 2020-01-06 15:34 | disposition home or self-care (01) ==
LOC: M ED 13:56
DX: F41.0 Panic disorder [episodic paroxysmal anxiety] (principal); F31.9 Bipolar disorder, unspecified; F17.200 Nicotine dependence, unspecified, uncomplicated; F12.20 Cannabis dependence, uncomplicated; F11.20 Opioid dependence, uncomplicated; B19.20 Unspecified viral hepatitis C without hepatic coma; J45.909 Unspecified asthma, uncomplicated; Z88.0 Allergy status to penicillin; Z88.1 Allergy status to other antibiotic agents; Z79.899 Other long term (current) drug therapy

== ENCOUNTER → 2020-02-02 | Outpatient (REF) | payer OTHER ==
[2020-02-02 17:03] LABS: ALBUMIN 3.8 GM/DL (3.2-5.2); ALT/SGPT 281 U/L (12-78); BILIRUBIN,TOTAL 0.4 MG/DL (0.2-1.0); BLOOD UREA NITROGEN 16 MG/DL (7-18); CALCIUM LEVEL 9.1 MG/DL (8.5-10.1); CARBON DIOXIDE LEVEL 29 MEQ/L (21-32); CHLORIDE LEVEL 107 MEQ/L (98-107); CREATININE FOR GFR 0.75 MG/DL (0.55-1.30); GLOMERULAR FILTRATION RATE > 60.0 (>60); GLUCOSE, FASTING 106 MG/DL (70-100); POTASSIUM SERUM 4.3 MEQ/L (3.5-5.1); SODIUM LEVEL 140 MEQ/L (136-145); TOTAL PROTEIN 7.4 GM/DL (6.4-8.2)
[2020-02-02 17:15] LABS: BASO % 0.2 % (0.0-1.0); EOS # 0.1 10^3/uL (0.0-0.5); EOS % 1.9 % (0.0-3.0); HEMATOCRIT 47.1 % (36.0-47.0); HEMOGLOBIN 14.5 g/dl (12.0-15.5); LYMPH # 1.8 10^3/uL (1.5-5.0); LYMPH % 31.7 % (24.0-44.0); MEAN CORPUSCULAR HEMOGLOBIN 27.2 pg (27.0-33.0); MEAN CORPUSCULAR HGB CONC 30.8 g/dl (32.0-36.5); MEAN CORPUSCULAR VOLUME 88.2 fl (80.0-96.0); MONO # 0.6 10^3/uL (0.0-0.8); MONO % 9.8 % (0.0-5.0); NEUTROPHILS # 3.2 10^3/uL (1.5-8.5); NEUTROPHILS % 55.9 % (36.0-66.0); PLATELET COUNT, AUTOMATED 150 10^3/uL (150-450); RED BLOOD COUNT 5.34 10^6/uL (4.00-5.40); WHITE BLOOD COUNT 5.8 10^3/uL (4.0-10.0)
== END ==
LOC: M LAB REF 16:07
PROVIDERS: ATTEND Family Medicine Addiction Medicine
DX: B18.2 Chronic viral hepatitis C (principal)

== ENCOUNTER → 2020-04-19 | Outpatient (REF) | payer OTHER ==
[~2020-04-19] MED LIST changes: -ESCI20TA; -ESCI20TA PO; +ESCI20TA16; +ESCI20TA16 PO
[2020-04-19 17:19] LABS: BASO % 0.3 % (0.0-1.0); EOS # 0.1 10^3/uL (0.0-0.5); EOS % 1.5 % (0.0-3.0); HEMATOCRIT 40.6 % (36.0-47.0); LYMPH # 2.8 10^3/uL (1.5-5.0); LYMPH % 30.7 % (24.0-44.0); MEAN CORPUSCULAR HEMOGLOBIN 29.2 pg (27.0-33.0); MEAN CORPUSCULAR VOLUME 91.2 fl (80.0-96.0); MONO # 0.8 10^3/uL (0.0-0.8); MONO % 8.9 % (2.0-8.0); NEUTROPHILS # 5.3 10^3/uL (1.5-8.5); NEUTROPHILS % 57.3 % (36.0-66.0); PLATELET COUNT, AUTOMATED 162 10^3/uL (150-450); RED BLOOD COUNT 4.45 10^6/uL (4.00-5.40); WHITE BLOOD COUNT 9.3 10^3/uL (4.0-10.0)
[2020-04-19 17:43] LABS: ALBUMIN 3.4 GM/DL (3.2-5.2); ALT/SGPT 240 U/L (12-78); BILIRUBIN,TOTAL 0.2 MG/DL (0.2-1.0); BLOOD UREA NITROGEN 11 MG/DL (7-18); CALCIUM LEVEL 8.7 MG/DL (8.5-10.1); CARBON DIOXIDE LEVEL 27 MEQ/L (21-32); CHLORIDE LEVEL 105 MEQ/L (98-107); CREATININE FOR GFR 0.61 MG/DL (0.55-1.30); GLOMERULAR FILTRATION RATE > 60.0 (>60); GLUCOSE, FASTING 111 MG/DL (70-100); POTASSIUM SERUM 4.3 MEQ/L (3.5-5.1); SODIUM LEVEL 139 MEQ/L (136-145); TOTAL PROTEIN 6.8 GM/DL (6.4-8.2)
== END ==
LOC: M LAB REF 16:14
PROVIDERS: ATTEND Family Medicine Addiction Medicine
DX: B18.2 Chronic viral hepatitis C (principal)

== ENCOUNTER 2020-08-03 17:50 | Inpatient (IN) | payer OTHER ==
[~2020-08-03] VITALS: Ht 157.5 cm; Wt 131.0 kg
[2020-08-03] MEDS: NICOTINE 21MG/24HR 1 EA TRANSDERMAL TD SCH (09:00)
[2020-08-03] MEDS ORDERED: LEXA1TAB2 PO (17:58)
--- NOTE | 2020-08-03 19:03 | REP ---
INDICATION: edema, swelling COMPARISON: None. TECHNIQUE: Ewing scale and color Doppler evaluation using linear high frequency transducer. FINDINGS: Ultrasound examination of the right and left lower extremity deep venous structures from the common femoral vein through the popliteal veins demonstrates normal compressibility flow and wave patterns in response to respiration and augmentation. There is no evidence for deep venous thrombosis. Bilateral calf veins could not be assessed due to edema. IMPRESSION: No evidence for deep venous thrombosis of the bilateral common femoral through popliteal veins. <Electronically signed by Johnny Altman > 08/03/20 [id number]
--- NOTE | 2020-08-03 19:56 | ECGEPIP ---
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 Order Number: [id number] Reading MD: Huy Pak Measurements Intervals [place] Rate: 93 P: -7 [place]: 134 QRS: 63 QRSD: 84 T: -10 QT: 368 QTc: 457 Interpretive Statements Normal sinus rhythm Nonspecific ST and T wave abnormality cw 01/06/[address] T wave changes Electronically Signed on 08-03-2020 19:56:01 EDT by Huy Pak
[2020-08-03 20:57] LABS: APPEARANCE, URINE HAZY (CLEAR); BACTERIA, URINE AUTO NEGATIVE (NEGATIVE); BILIRUBIN, URINE AUTO NEGATIVE (NEGATIVE); BLOOD, URINE BLOOD NEGATIVE (NEGATIVE); COLOR, URINE YELLOW (YELLOW); GLUCOSE, URINE (UA) AUTO NEGATIVE (NEGATIVE); KETONE, URINE AUTO NEGATIVE (NEGATIVE); LEUKOCYTE ESTERASE, URINE AUTO NEGATIVE (NEGATIVE); MUCUS, URINE SMALL (NEGATIVE); NITRITE, URINE AUTO NEGATIVE (NEGATIVE); PROTEIN, URINE AUTO NEGATIVE (NEGATIVE); RBC, URINE AUTO 0 /HPF (0-3); SPECIFIC GRAVITY URINE AUTO 1.015 (1.002-1.035); SQUAMOUS EPITHELIAL CELL UR AU 2 /HPF (0-6); UROBILINOGEN, URINE AUTO 0.2 mg/dL (0.0-2.0); WBC, URINE AUTO 0 /HPF (0-3)
[2020-08-03 21:24] LABS: HCG, SERUM QUALITATIVE NEGATIVE (NEGATIVE)
[2020-08-03 21:25] LABS: ALT/SGPT 82 U/L (12-78); BILIRUBIN,DIRECT < 0.1 MG/DL (0.0-0.2); BILIRUBIN,TOTAL 0.3 MG/DL (0.2-1.0); BLOOD UREA NITROGEN 12 MG/DL (7-18); CALCIUM LEVEL 8.3 MG/DL (8.5-10.1); CARBON DIOXIDE LEVEL 29 MEQ/L (21-32); CHLORIDE LEVEL 111 MEQ/L (98-107); CREATININE FOR GFR 0.58 MG/DL (0.55-1.30); GLOMERULAR FILTRATION RATE > 60.0 (>60); GLUCOSE, FASTING 98 MG/DL (70-100); NT-PRO BNP 237 PG/ML (<125); SODIUM LEVEL 144 MEQ/L (136-145); TOTAL PROTEIN 6.1 GM/DL (6.4-8.2)
[2020-08-03 21:32] LABS: HEMATOCRIT 23.8 % (36.0-47.0); MEAN CORPUSCULAR HEMOGLOBIN 21.2 pg (27.0-33.0); MEAN CORPUSCULAR HGB CONC 25.6 g/dl (32.0-36.5); MEAN CORPUSCULAR VOLUME 82.6 fl (80.0-96.0); PLATELET COUNT, AUTOMATED 185 10^3/uL (150-450); RED BLOOD COUNT 2.88 10^6/uL (4.00-5.40); WHITE BLOOD COUNT 7.3 10^3/uL (4.0-10.0)
[2020-08-03 21:33] LABS: HEMOGLOBIN 6.1 g/dl (12.0-15.5)
[2020-08-03 21:51] LABS: ANISOCYTOSIS 4+; BASOPHILS 1 % (0-1); EOSINOPHILS 2 % (0-3); LYMPHOCYTES 28 % (16-44); METAMYELOCYTES 2 % (0-0); MICROCYTOSIS 1+; MONOCYTES 5 % (0-5); NEUTROPHILS 62 % (28-66); PLATELET ESTIMATE NORMAL (NORMAL); POLYCHROMASIA 2+
[2020-08-03 21:52] LABS: HYPOCHROMASIA 2+
[2020-08-03 21:53] LABS: POIKILOCYTOSIS 2+
[2020-08-03 21:54] LABS: TEAR DROP CELLS 1+
--- NOTE | 2020-08-03 22:29 | REPVR ---
PROCEDURE INFORMATION: Exam: XR Chest Exam date and time: 08/03/2020 6:20 PM Age: 35 years old Clinical indication: Edema TECHNIQUE: Imaging protocol: XR of the chest. Views: 2 views. COMPARISON: CR PORTABLE CHEST X-RAY 11/16/2019 12:01 AM FINDINGS: Lungs: Unremarkable. No consolidation. No pulmonary edema. Pleural spaces: Unremarkable. No pleural effusion. No pneumothorax. Heart/Mediastinum: Unremarkable. No cardiomegaly. Bones/joints: Unremarkable. IMPRESSION: No acute findings. Electronically signed by: Tyler Tomas On 08/03/2020 22:28:52 PM
[2020-08-03] MEDS ORDERED: FERR1TAB8 PO (22:35)
[2020-08-03 22:50] LABS: RSV AMPLIFICATION NEGATIVE (NEGATIVE)
[2020-08-03 23:30] VITALS: BP 140/69
[2020-08-03 23:49] VITALS: BP 128/67
[2020-08-03] MEDS ORDERED: ALBUTEROL 90 MCG/ACT 8GM HFA INHALER INH PRN (23:50)
[2020-08-04] VITALS (12 sets, daily range): BP systolic 122–146; BP diastolic 58–82
[2020-08-04 00:19] LABS: C REACTIVE PROTEIN QUANTITATIV < 0.30 MG/DL (0.00-0.30); FERRITIN 26 NG/ML (8-252); IRON (FE) 19 UG/DL (50-170); PERCENT SATURATION 4.3 % (13.2-45.0); TOTAL IRON BINDING CAPACITY 446 UG/DL (250-450)
--- NOTE | 2020-08-04 01:38 | HPEPDOC ---
General Date of Admission 08/03/20 Date of Service: Aug 03, 2020 Chief Complaint The patient is a 35-year-old female admitted with a reason for visit of Bilateral Feet / Hand Swelling. Source: Patient, RN/MD, RN notes reviewed, Old records Timing/Duration: Day(s), Getting worse Associated Symptoms: Loss of appetite, Malaise, Shortness of breath, Dizziness, Other (pain and swelling lower legs, ankle, feet) History of Present Illness Ms. Fuller is a 35 year-old female with significant PMH of Bipolar depression disorder, panic disorder, PTSD in counseling, anxiety, opiate addiction on Suboxone 8 mg SL daily however in the system is shows 2 mg/0.5, nicotine dependence 1 pack a day (states she is not ready to stop smoking), Hepatitis C (hx), asthma, bronchitis, dyspnea worsens with exertion, GERD, abdominal pain and hemorrhoids, arrives to [facility] ER fatigue, malaise, dyspneic, edema to bilateral lower legs, ankles, and feet which all began several weeks prior to today. Patients says she had a similar episode like this one in October 2019 when she was hospitalize, and told she had a GI bleed however she was never able to follow up on the new diagnosis. ED labs show moderate to severe anemia with hemoglobin decreased to 6.1 and hematocrit 23.8, Retic hgb equivalent elevated 18.6, and Percent Retic count is elevated 5.9, Metamyelocytes are 2 with absolute Reticulocyte count 167.9, Nucleated RBC is 1.1, Platelet count 185, MCH 21.2, MCHC 25.6 and RDW 24.7, BNP is elevated 237, AST and ALT 82, Transferrin % 4.3, Iron 19, TIBC 446, Ferritin 26, HCG is negative, Albumin 3.0. Suboxone labs is pending. Patient will be ad mitted to Inpatient Medical-Surgical Unit on telemetry and pulse ox continuous with 2 units of PRBC infusing. Home Medications Scheduled Buprenorphine HCl/Naloxone HCl (Suboxone 2 mg-0.5 mg Sl Film) 1 Each Film, 1 STRIP SL DAILY, (Reported) Buspirone HCl (Buspirone HCl) 30 Mg Tablet, 30 MG PO BID, (Reported) Escitalopram Oxalate (Lexapro) 20 Mg Tablet, 20 MG PO DAILY, (Reported) Ferrous Sulfate (Ferrous Sulfate) 325 Mg Tablet, 325 MG PO DAILY, (Reported) Olanzapine (Olanzapine) 15 Mg Tablet, 15 MG PO QHS, (Reported) Allergies Coded Allergies: Penicillins (Verified Allergy, Unknown, 11/15/19) HAD SINCE A BABY amoxicillin (Verified Allergy, Unknown, 11/15/19) HAD SINCE A BABY Past Medical History Medical History Bipolar disorder with depression and anxiety, asthma, bronchitis, hemorrhoids, gastric reflux, nicotine dependence, anemia, hepatitis C, panic disorder, incontinence, premature menopause with Amenorrhea, shortness of breath intermittently that worsens with exertion Surgical History C-sections x 3, appendectomy, T & A ear surgery, Right knee arthroscopy and right bunionectomy Family History Significant Family History: Noncontributory Social History * Smoker: current smoker, cigarettes Drugs: marijuana, other (Opiate addiction and ) A-FIB/CHADSVASC A-FIB History Current/History of A-Fib/PAF?: No Review of Systems Constitutional: Reports: Malaise, Weakness, Fatigue Eyes: Denies: Pain, Vision change, Conjunctivae inflammation, Eyelid inflammation, Redness, Other ENT: Reports: Head Aches Skin: Reports: Dry, Other (red and swollen, painful) Pulmonary: Reports: Dyspnea, Cough Cardiovascular: Reports: Edema (lower legs, ankle, feet), Lt Headedness Gastrointestinal: Reports: Nausea, Abdominal Pain Genitourinary: Denies: Dysuria, Frequency, Incontinence, Hematuria, Retention, Other Symptoms Hematologic: Denies: Bruising, Bleeding Excessively, Petecchia, Purpura, Enlarged Lymph Nodes, Other Hematologic Endocrine: Denies: Polydipsia, Polyphagia, Polyuria, Heat Intolerance, Cold Intolerance, Other Endocrine Sx Musculoskeletal: Reports: Leg Pain, Foot Pain, Joint Pain, Muscle Pain, Spasms Neurological: Reports: Weakness Psych: Reports: Depression Physical Examination General Exam: Positive: Alert, Cooperative, Mild Distress Eye Exam: Positive: PERRLA, Conjunctiva & lids normal ENT Exam: Positive: Atraumatic, Pharynx Normal, Nares Patent Neck Exam: Positive: Supple Chest Exam: Positive: Wheezing Heart Exam: Positive: Rate Normal, Regular Rhythm, Normal S1, Normal S2 Telemetry: Positive: No significant arrhythmia Abdomen Exam: Positive: Normal bowel sounds, Tenderness Extremity Exam: Positive: Edema, Normal pulses, Tenderness, Swelling (redness BLE, ankle and feet), Other (redness BLE, ankle and feet) Skin Exam: Positive: Other skin issue (warm and dry to touch) Neuro Exam: Positive: Normal Speech, Cranial Nerves 3-12 NL Psych Exam: Positive: Mental status NL, Mood NL, Memory Intact, Oriented x 3 Vital Signs Vital Signs Date Time Temp Pulse Resp B/P (MAP) Pulse Ox O2 Delivery O2 Flow Rate FiO2 08/03/20 22:50 97.7 78 20 133/68 (89) 97 Room Air Laboratory Data Labs 24H Laboratory Tests 2 08/03/20 19:11: Anion Gap 4L, Glomerular Filtration Rate > 60.0, Calcium Level 8.3L, Total Bilirubin 0.3, Direct Bilirubin < 0.1, Aspartate Amino Transf (AST/SGOT) 82H, Alanine Aminotransferase (ALT/SGPT) 82H, Alkaline Phosphatase 82, US-Dcc-P-Type Natriuretic Peptide 237H, Total Protein 6.1L, Albumin 3.0L, Albumin/Globulin Ratio 1.0L, Human Chorionic Gonadotropin, Qual NEGATIVE 08/03/20 19:12: Urine Color YELLOW, Urine Appearance HAZY, Urine pH 6.0, Urine Specific [place] 1.015, Urine Protein NEGATIVE, Urine Glucose (Auto)(UA) NEGATIVE, Urine Ketones (Auto) NEGATIVE, Urine Blood NEGATIVE, Urine Nitrite NEGATIVE, Urine Bilirubin NEGATIVE, Urine Urobilinogen 0.2, Urine Leukocyte Esterase (Auto) NEGATIVE, Urine WBC (Auto) 0, Urine RBC (Auto) 0, Urine Hyaline Casts (Auto) 0, Urine Bacteria (Auto) NEGATIVE, Urine Squamous Epithelial Cells 2, Urine Mucus (Auto) SMALL, Urine Sperm (Auto) 08/03/20 21:24: Neutrophils (%) (Auto) , Nucleated Red Blood Cells % (auto) 1.1H, Neutrophils 62, Lymphocytes (Manual) 28, Monocytes (Manual) 5, Eosinophils (Manual) 2, Basophils (Manual) 1, Metamyelocytes 2H, Polychromasia 2+, Hypochromasia 2+, Poikilocytosis 2+, Anisocytosis 4+, Microcytosis 1+, Macrocytosis 2+, Tear Drop Cells 1+, Platelet Estimate NORMAL 08/03/20 22:05: Coronavirus (COVID-19)(PCR) NEGATIVE, Influenza Type A (RT-PCR) NEGATIVE, Influenza Type B (RT-PCR) NEGATIVE, Respiratory Syncytial Virus (PCR) NEGATIVE CBC/BMP Laboratory Tests 08/03/20 19:11 08/03/20 21:24 Problems (1) Acute anemia Status: Acute Problem Text: Ms. Fuller is a 35 year-old female admitted to [facility] for Symptomatic anemia (origin not known), malaise, fatigue and Peripheral lower leg edema. Acute symptomatic anemia (origin possible GI bleed) with Malaise and Fatigue- Acute Plan Admit Inpatient medical-surgical unit on telemetry with continuous pulse oximetry Blood transfusion 2 units PRBC started in ED, consent obtain by ED Check CBC W DIFF, fecal occult blood, GI bleed transition assistant VS Fall precautions May need GI referral Occult fecal and GI occult ordered; Anemia panel ordered: TIBC/Ferritin/Transferrin Supplemental O2 as needed keep O2 saturation >93% HOLD HOME MEDICATION FERROUS SULFATE 325mg po daily Regular diet Bed rest Peripheral Edema-Chronic Check CMP Elevate lower legs Apply [place] BLE Opiate dependence on Suboxone-Chronic Suboxone lab ordered Continue Suboxone 2/.0.5 mg SL daily -home dose once verified by pharmacy or morning provider Nicotine dependence-Chronic Nicotine patch 21 mcg topically daily Asthma-chronic Albuterol sulfate 90 mcg 1-2 puffs q 6 hours as needed for wheezing, shortness of breath Bipolar Disorder-Chronic Continue home medication: Olanzapine 15 mg po QHS Depression with Anxiety-Chronic Continue home medications: Buspirone 30 mg po BID and Lexapro 20 mg po q day PPI: not warranted DVT Prophylaxis: Not ordered due to unknown source of anemia. BLE-BR[place] HO[place] and SCDS Discharge: Pending clinical course (2) Fatigue Status: Acute (3) Bipolar depression Status: Chronic Problem Specific Plan: Monitor Clinically (4) Hepatitis C infection Status: Chronic Problem Specific Plan: Monitor Clinically (5) Asthma Status: Chronic Problem Specific Plan: Monitor Clinically (6) Nicotine dependence Status: Chronic Problem Specific Plan: Monitor Clinically (7) Panic attacks Status: Acute (8) Peripheral edema Status: Chronic Problem Specific Plan: Monitor Clinically, Repeat Labs (9) Opiate dependence Status: Chronic Problem Specific Plan: Monitor Clinically Problem Text: On Suboxone Plan / VTE VTE Prophylaxis Ordered?: Yes Plan Activity: Bedrest Diagnostics: Check Labs, Repeat Labs in AM [facility] Aug 03, 2020 23:58
[2020-08-04 06:56] LABS: HEMATOCRIT 30.2 % (36.0-47.0); MEAN CORPUSCULAR HEMOGLOBIN 23.4 pg (27.0-33.0); MEAN CORPUSCULAR HGB CONC 28.1 g/dl (32.0-36.5); PLATELET COUNT, AUTOMATED 160 10^3/uL (150-450); RED BLOOD COUNT 3.64 10^6/uL (4.00-5.40); WHITE BLOOD COUNT 6.3 10^3/uL (4.0-10.0)
[2020-08-04 06:57] LABS: HEMOGLOBIN 8.5 g/dl (12.0-15.5)
[2020-08-04] MEDS: NICOTINE 21MG/24HR 1 EA TRANSDERMAL TD SCH (09:00)
--- NOTE | 2020-08-04 10:40 | IPNPDOC ---
Text Note Date of Service The patient was seen on 08/04/20. NOTE Subjective: Patient somnolent in the morning. She denied any chest pain, palpi tations abdominal pain, diarrhea or dysuria Objective: GENERAL APPEARANCE: NAD HEENT: no scleral icterus, no JVD, EOMI CARDIOVASCULAR: S1S2 LUNGS: CTA ABDOMEN: soft & not tender w palpitation MUSCULOSKELETAL: no cyanosis, no swelling INTEGUMENT: no generalized pallor NEUROLOGICAL: cranial nerve function from 2-12 intact intact, follows commands, speech not dysarthric Assessment and plan Patient is 55 years old female with past medical history of Bipolar depression disorder, panic disorder, PTSD in counseling, anxiety, opiate addiction on Suboxone 8 mg SL daily presented hospital with generalized weakness and increased shortness of breath. Patient was found to have acute anemia most likely secondary to GI bleed. Acute anemia/ GI bleed Most likely secondary to GI bleed Patient has a history of upper GI bleed in 2019, Stool guaiac was positive, patient refused endoscopy and colonoscopy Patient received 2 units of blood, hemoglobin stable 8.5 Await stool for occult blood. Appreciate/agree with GI consult PPI, sucralfate, clear liquid diet for now Continue iron supplementation Opioid dependence On Suboxone Asthma Not in acute exacerbation Continue home meds Bipolar disorder/depression with anxiety/ panic attack Nonpsychotic Continue home meds History of hepatitis C infection Follow-up with ID specialist in the outpatient settings Morbid Obesity BMI 52.8 Complicated care VS,Fishbone, I+O VS, Fishbone, I+O Laboratory Tests 08/03/20 19:11 08/03/20 21:24 08/04/20 06:32 Vital Signs Date Time Temp Pulse Resp B/P (MAP) Pulse Ox O2 Delivery O2 Flow Rate FiO2 08/04/20 08:00 98.8 74 18 146/79 (101) 99 Room Air I&O- Last 24 Hours up to 6 AM 08/04/20 06:00 Intake Total 800 ml Output Total 600 ml Balance 200 ml SONI DANIELSON DO Aug 04, 2020 10:40
[2020-08-04] MEDS ORDERED: D5W 1,000 ML IV SCH (11:30)
[2020-08-04] MEDS: ESCITALOPRAM OXALATE 10 MG TAB (LEXAPRO) PO SCH (11:59)
[2020-08-04] MEDS: BUPRENORPHINE/NALOXONE 2-0.5MG SUBLINGUAL TABLET(SUBOXONE) SL SCH (11:59)
[2020-08-04] MEDS: FERROUS SULFATE 325MG TAB PO SCH (11:59)
[2020-08-04] MEDS ORDERED: PANTOPRAZOLE 40MG VIAL (C9113 PER 1) IV ONE (12:00)
[2020-08-04] MEDS: busPIRone 10 MG TAB PO SCH ×2 (15:03→21:08)
[2020-08-04] MEDS ORDERED: MIDAZOLAM INJ 2MG/2ML VIAL (J2250 PER 1MG) As Ordered ONE (16:11)
[2020-08-04] MEDS ORDERED: LIDOCAINE 2% 100MG/5ML SDV (FOR ANES.) As Ordered ONE (16:11)
[2020-08-04] MEDS ORDERED: fentaNYL 100 MCG/2 ML INJECTION (J3010) As Ordered ONE (16:11)
[2020-08-04] MEDS ORDERED: propofoL 200 MG/20 ML VIAL As Ordered ONE (16:11)
--- NOTE | 2020-08-04 16:28 | CR ---
CONSULTATION DATE: 08/04/2020 REQUESTING PHYSICIAN: Hospitalist service REASON FOR CONSULTATION: Chronic anemia. HISTORY OF PRESENT ILLNESS: This is a 35-year-old female who for the second time this year presents to the hospital with markedly diminished hemoglobin. She feels weak, tired. She has not seen any black stools, dark stools or any bloody stools. She was found to have a hemoglobin of 6.4 and was admitted for transfusion and evaluation. PAST MEDICAL HISTORY: 1. Anemia. 2. Hiatal hernia. 3. Anxiety. 4. Depression. 5. Hemorrhoids. 6. Heartburn. 7. Nicotine dependence. 8. Hepatitis C. PAST SURGICAL HISTORY: 1. Appendectomy. 2. . FAMILY HISTORY: Negative for colorectal carcinoma and inflammatory bowel disease. SOCIAL HISTORY: Positive for tobacco, positive for alcohol, positive for marijuana. History of opiate addiction. PHYSICAL EXAMINATION: GENERAL: She is awake, alert and oriented x3 in no acute distress. Nontoxic in appearance. VITAL SIGNS: Temperature 97.7, pulse 78, respiratory rate 20, blood pressure 133/68, pulse ox 97% on room air. HEAD, EYES, EARS, NOSE AND THROAT: Grossly without abnormality. NECK: Supple, negative for lymphadenopathy or thyromegaly. CHEST: Clear bilaterally. HEART: Regular rate and rhythm. S1, S2. No murmurs or gallops. ABDOMEN: Soft, obese, nontender, good bowel sounds. EXTREMITIES: Positive for 1-2+ pedal edema. Pulses are palpable and intact bilaterally. LAB WORK: Hemoglobin 6.1/8.5 post transfusion. MCV on presentation was 82.6. RDW 24.7. Platelet count of 185. BUN is 12, creatinine 0.l58. TIBC 446, iron saturation 4.3, ferritin 26. AST 82, ALT 82, albumin 3.0. IMPRESSION: 1. Anemia. 2. Iron deficiency. RECOMMENDATION: EGD today and depending on findings, further evaluation as outpatient.
--- NOTE | 2020-08-04 16:48 | ROOR ---
Patient Name: Luisa Fuller Procedure Date: 08/04/2020 4:03 PM Date of : 1985 Age: 35 Gender: Female Note Status: Finalized Procedure: Upper GI endoscopy Indications: Iron deficiency anemia Providers: Hugo Lazaro MD Referring MD: 2. Inpatient 2. Inpatient, Dmitriy FITZPATRICK MD Requesting Provider: Medicines: Monitored Anesthesia Care Complications: No immediate complications. Procedure: Pre-Anesthesia Assessment: - The heart rate, respiratory rate, oxygen saturations, blood pressure, adequacy of pulmonary ventilation, and response to care were monitored throughout the procedure. The Endoscope was introduced through the mouth, and advanced to the third part of duodenum. The upper GI endoscopy was accomplished without difficulty. The patient tolerated the procedure well. Findings: A large hiatal hernia with a few Tanmay erosions was found. The Z-line was 32 cm from the incisors. Biopsies were taken with a cold forceps for histology. The exam was otherwise without abnormality. Biopsies for histology were taken with a cold forceps in the second portion of the duodenum and in the third portion of the duodenum for evaluation of celiac disease. Impression: - Moderater to large hiatal hernia with a few Tanmay erosions. Biopsied. - The examination was otherwise normal. - Biopsies were taken with a cold forceps for evaluation of celiac disease. Recommendation: - Use Prilosec (omeprazole) 40 mg PO daily indefinitely. - Avoid NSAIDs indefinietly. - Recommend an iron supplement indefinitely. - If anemia continues/returns, then recommend repair of large hiatal hernia - Perform a colonoscopy at appointment to be scheduled/Outpatient basis - Return to my office at appointment to be scheduled. Procedure Code(s): --- Professional --- 23186, Esophagogastroduodenoscopy, flexible, transoral; with biopsy, single or multiple Diagnosis Code(s): --- Professional --- K44.9, Diaphragmatic hernia without obstruction or gangrene K25.9, Gastric ulcer, unspecified as acute or chronic, without hemorrhage or perforation D50.9, Iron deficiency anemia, unspecified CPT copyright 2019 [employer]. All rights reserved. The codes documented in this report are preliminary and upon chronometer repairer review may be revised to meet current compliance requirements. Hugo Lazaro MD Hugo Lazaro MD 08/04/2020 4:47:48 PM Electronically signed by Hugo Lazaro MD Number of Addenda: 0 Note Initiated On: 08/04/2020 4:03 PM Estimated Blood Loss: Estimated blood loss: none.
[2020-08-04] MEDS ORDERED: ONDANSETRON 4MG/2ML VIAL IV PRN (16:55)
[2020-08-04] MEDS ORDERED: LR 1,000 ML IV SCH (16:55)
[2020-08-04] MEDS: SUCRALFATE 1 GM TAB PO SCH ×2 (17:42→21:08)
[2020-08-04] MEDS ORDERED: OLANZapine 5 MG TAB PO SCH (21:00)
[2020-08-04] MEDS ORDERED: PANTOPRAZOLE 40MG VIAL (C9113 PER 1) IV SCH (23:00)
[2020-08-05 06:00] VITALS: BP 133/75
[2020-08-05] MEDS ORDERED: INFLUENZA QUADRIVALENT PF VACCINE 0.5ML SYRINGE IM ONE (09:00)
[2020-08-05] MEDS ORDERED: PANTOPRAZOLE 40MG TAB (PROTONIX) PO SCH (09:00)
[2020-08-05] MEDS ORDERED: OMEPRAZOLE 20 MG CAP PO SCH (09:00)
[2020-08-05] MEDS: NICOTINE 21MG/24HR 1 EA TRANSDERMAL TD SCH (09:00)
[2020-08-05 09:43] LABS: HEMATOCRIT 31.4 % (36.0-47.0); HEMOGLOBIN 8.8 g/dl (12.0-15.5); MEAN CORPUSCULAR HEMOGLOBIN 23.2 pg (27.0-33.0); MEAN CORPUSCULAR VOLUME 82.8 fl (80.0-96.0); PLATELET COUNT, AUTOMATED 177 10^3/uL (150-450); RED BLOOD COUNT 3.79 10^6/uL (4.00-5.40); WHITE BLOOD COUNT 7.2 10^3/uL (4.0-10.0)
[2020-08-05] MEDS: ESCITALOPRAM OXALATE 10 MG TAB (LEXAPRO) PO SCH (09:47)
[2020-08-05] MEDS: SUCRALFATE 1 GM TAB PO SCH (09:47)
[2020-08-05] MEDS: FERROUS SULFATE 325MG TAB PO SCH (09:47)
[2020-08-05] MEDS: busPIRone 10 MG TAB PO SCH (09:47)
[2020-08-05 09:53] LABS: VITAMIN B12 LEVEL 542 PG/ML (247-911)
[2020-08-05 09:53] LABS: BLOOD UREA NITROGEN 10 MG/DL (7-18); CALCIUM LEVEL 8.5 MG/DL (8.5-10.1); CARBON DIOXIDE LEVEL 26 MEQ/L (21-32); CHLORIDE LEVEL 111 MEQ/L (98-107); CREATININE FOR GFR 0.54 MG/DL (0.55-1.30); GLOMERULAR FILTRATION RATE > 60.0 (>60); GLUCOSE, FASTING 100 MG/DL (70-100); SODIUM LEVEL 143 MEQ/L (136-145)
[2020-08-05 09:54] LABS: FOLATE 15.3 NG/ML (>5.4)
[2020-08-05] MEDS: BUPRENORPHINE/NALOXONE 2-0.5MG SUBLINGUAL TABLET(SUBOXONE) SL SCH (09:57)
[2020-08-05] MEDS ORDERED: OMEP-218 PO (10:08)
[2020-08-05 10:20] LABS: ATYPICAL LYMPH 2 % (0-5); EOSINOPHILS 3 % (0-3); LYMPHOCYTES 32 % (16-44); MONOCYTES 2 % (0-5); NEUTROPHILS 61 % (28-66)
[2020-08-05 10:21] LABS: ANISOCYTOSIS 1+; HYPOCHROMASIA 3+; POLYCHROMASIA 1+
[2020-08-05 10:22] LABS: PLATELET ESTIMATE DECREASED (NORMAL)
--- NOTE | 2020-08-05 16:08 | DS.PDOC ---
Discharge Summary General Date of Admission Aug 03, 2020 at 23:11 Date of Discharge 08/05/20 Discharge Summary PROCEDURES PERFORMED DURING STAY: [None]. ADMITTING DIAGNOSES: Acute blood loss anemia Opioid dependence Asthma Bipolar disorder/depression with anxiety/ panic attack History of hepatitis C infection GI bleed Morbid obesity BMI 52.8 DISCHARGE DIAGNOSES: Acute blood loss anemia Opioid dependence Asthma Bipolar disorder/depression with anxiety/ panic attack History of hepatitis C infection GI bleed Morbid obesity BMI 52.8 COMPLICATIONS/CHIEF COMPLAINT: Acute Anemia,Peripheral Edema. HISTORY OF PRESENT ILLNESS:Patient is 55 years old female with past medical history of Bipolar depression disorder, panic disorder, PTSD in counseling, anxiety, opiate addiction on Suboxone 8 mg SL daily presented hospital with generalized weakness and increased shortness of breath. Patient was found to have acute anemia most likely secondary to GI bleed. HOSPITAL COURSE: During this hospital stay the following issue addressed Acute anemia Most likely secondary to GI bleed Patient has a history of upper GI bleed in 2019, Stool guaiac was positive, patient refused endoscopy and colonoscopy Patient received 2 units of blood, hemoglobin stable Await stool for occult blood. EGD was done patient was found to have Moderater to large hiatal hernia with a few Tanmay erosions. Biopsied. - The examination was otherwise normal. - Biopsies were taken with a cold forceps for evaluation of celiac disease. Patient received PPI, sucralfate, Continue iron supplementation Opioid dependence On Suboxone Asthma Not in acute exacerbation Continue home meds Bipolar disorder/depression with anxiety/ panic attack Nonpsychotic Continue home meds History of hepatitis C infection Follow-up with ID specialist in the outpatient settings DISCHARGE MEDICATIONS: Please see below. ALLERGIES: Please see below. PHYSICAL EXAMINATION ON DISCHARGE: VITAL SIGNS: Please see below. GENERAL APPEARANCE: NAD HEENT: no scleral icterus, no JVD, EOMI CARDIOVASCULAR: S1S2 LUNGS: CTA ABDOMEN: soft & not tender w palpitation MUSCULOSKELETAL: no cyanosis, no swelling INTEGUMENT: no generalized pallor NEUROLOGICAL: cranial nerve function from 2-12 intact intact, follows commands, speech not dysarthric PSYCHIATRIC EXAMINATION: LABORATORY DATA: Please see below. PROGNOSIS: Fair ACTIVITY: [As tolerated]. DIET: Regular DISPOSITION: 01 Home, Self-Care. DISCHARGE INSTRUCTIONS: Follow-up with GI team for colonoscopy, avoid NSAIDS ITEMS TO FOLLOWUP ON ON OUTPATIENT: Follow-up with PCP and GI team DISCHARGE CONDITION: [Stable]. TIME SPENT ON DISCHARGE: 40 minutes. Vital Signs/I&Os Vital Signs Date Time Temp Pulse Resp B/P (MAP) Pulse Ox O2 Delivery O2 Flow Rate FiO2 08/05/20 06:00 98.3 64 17 133/75 (94) 99 Room Air I&O- Last 24 Hours up to 6 AM 08/05/20 06:00 Intake Total 1495 ml Output Total 1300 ml Balance 195 ml Laboratory Data Labs 24H Laboratory Tests 2 08/05/20 09:27: Neutrophils (%) (Auto) , Nucleated Red Blood Cells % (auto) 0.3H, Neutrophils 61, Lymphocytes (Manual) 32, Monocytes (Manual) 2, Eosinophils (Manual) 3, Atypical Lymphocytes 2, Polychromasia 1+, Hypochromasia 3+, Anisocytosis 1+, Platelet Estimate DECREASED, Anion Gap 6L, Glomerular Filtration Rate > 60.0, Calcium Level 8.5 CBC/BMP Laboratory Tests 08/05/20 09:27 Discharge Medications Scheduled Buprenorphine HCl/Naloxone HCl (Suboxone 2 mg-0.5 mg Sl Film) 1 Each Film, 1 STRIP SL DAILY, (Reported) Buspirone HCl (Buspirone HCl) 30 Mg Tablet, 30 MG PO BID, (Reported) Escitalopram Oxalate (Lexapro) 20 Mg Tablet, 20 MG PO DAILY, (Reported) Ferrous Sulfate (Ferrous Sulfate) 325 Mg Tablet, 325 MG PO DAILY, (Reported) Olanzapine (Olanzapine) 15 Mg Tablet, 15 MG PO QHS, (Reported) Omeprazole (Omeprazole) 20 Mg Capsule.dr, 40 MG PO DAILY Allergies Coded Allergies: Penicillins (Verified Allergy, Unknown, 11/15/19) HAD SINCE A BABY amoxicillin (Verified Allergy, Unknown, 11/15/19) HAD SINCE A BABY SONI DANIELSON DO Aug 05, 2020 16:08
[2020-08-08 03:07] LABS: BUPRENORPHINE FREE SERUM <1 ng/mL (1-10)
== END 2020-08-05 12:35 | disposition home or self-care (01) | DRG 253 ==
LOC: M ED 17:50 → M ED INP 23:11 → ENRESERV 23:46 → M PCU 08-04 01:08 → M MS5PR 08-04 22:00
PROVIDERS: ADMIT Family Medicine; ATTEND Internal Medicine
PROC: 30233N1 Transfusion of Nonautologous Red Blood Cells into Peripheral Vein, Percutaneous Approach (ICD-10-PCS; principal; 2020-08-03)
PROC: 0DB98ZX Excision of Duodenum, Via Natural or Artificial Opening Endoscopic, Diagnostic (ICD-10-PCS; 2020-08-04)
DX: K92.2 Gastrointestinal hemorrhage, unspecified (principal); K25.9 Gastric ulcer, unspecified as acute or chronic, without hemorrhage or perforation; F11.20 Opioid dependence, uncomplicated; Z68.43 Body mass index [BMI] 50.0-59.9, adult; F17.210 Nicotine dependence, cigarettes, uncomplicated; D50.9 Iron deficiency anemia, unspecified; E66.01 Morbid (severe) obesity due to excess calories; F31.9 Bipolar disorder, unspecified; D62 Acute posthemorrhagic anemia; K44.9 Diaphragmatic hernia without obstruction or gangrene; F41.0 Panic disorder [episodic paroxysmal anxiety]; F43.10 Post-traumatic stress disorder, unspecified; B19.20 Unspecified viral hepatitis C without hepatic coma; R60.0 Localized edema; J45.909 Unspecified asthma, uncomplicated; K21.9 Gastro-esophageal reflux disease without esophagitis; R10.9 Unspecified abdominal pain; K64.8 Other hemorrhoids; R32 Unspecified urinary incontinence; Z20.822 Contact with and (suspected) exposure to COVID-19; R53.83 Other fatigue; Z79.899 Other long term (current) drug therapy; Z88.0 Allergy status to penicillin

== ENCOUNTER 2020-09-12 23:53 | Emergency (ER) | payer OTHER ==
[~2020-09-12] VITALS: Ht 157.5 cm; Wt 113.6 kg
[~2020-09-12 23:53] MED LIST changes: +BUPR1FIL35; -BUPR1FIL5; +FERR1TAB8 PO; +LEXA1TAB2 PO; -OLAN15TA; -OLAN15TA PO; +OLAN15TA13; +OLAN15TA13 PO
[2020-09-13] MEDS ORDERED: SUBO8MIS SL (00:10)
[2020-09-13] MEDS ORDERED: SUCR1TAB56 (00:10)
[2020-09-13] MEDS ORDERED: KETOROLAC 30 MG/ML 1ML VIAL IM ONE (05:30)
[2020-09-13] MEDS ORDERED: KETO10TAB PO (05:31)
[2020-09-13 06:37] VITALS: BP 122/60
--- NOTE | 2020-09-13 07:51 | REP ---
INDICATION: injury. COMPARISON: None. TECHNIQUE: AP view of the pelvis and AP and frogleg views of the right hip are provided. FINDINGS: The bony pelvic ring is intact. No pelvic or sacral fracture is seen. No proximal femur fracture is observed. There is Leigh Ann trochanteric soft tissue calcification consistent with tendinitis or bursitis changes. This does not appear to be a chip fracture. Periarticular soft tissues are otherwise unremarkable. IMPRESSION: No fracture seen <Electronically signed by Alejandro Edgar > 09/13/20 [id number]
== END 2020-09-13 06:58 | disposition home or self-care (01) ==
LOC: M ED 23:53
DX: S70.01XA Contusion of right hip, initial encounter (principal); V03.00XA Pedestrian on foot injured in collision with car, pick-up truck or van in nontraffic accident, initial encounter; J45.909 Unspecified asthma, uncomplicated; F31.9 Bipolar disorder, unspecified; Z88.0 Allergy status to penicillin; Z88.1 Allergy status to other antibiotic agents; Z79.899 Other long term (current) drug therapy
CPT/HCPCS: 36415; 73502; 84702; 96372; 99283; J1885

== ENCOUNTER 2020-11-18 12:00 | Emergency (ER) | payer OTHER ==
[~2020-11-18] VITALS: Ht 160 cm; Wt 116.3 kg
[2020-11-18 12:00] VITALS: BP 137/88
[~2020-11-18 12:00] MED LIST changes: +KETO10TAB PO; +OMEP-173 PO; -OMEP-218 PO; +SUCR1TAB56
== END 2020-11-18 12:08 | disposition left against medical advice (07) ==
LOC: M ED 12:00
DX: Z53.21 Procedure and treatment not carried out due to patient leaving prior to being seen by health care provider (principal)

== ENCOUNTER → 2021-05-27 | Outpatient (CLI) | payer OTHER, MEDICAID ==
[2021-05-27 15:16] LABS: BASO % 0.3 % (0.0-1.0); EOS # 0.1 10^3/uL (0.0-0.5); EOS % 1.4 % (0.0-3.0); HEMATOCRIT 42.2 % (36.0-47.0); HEMOGLOBIN 13.6 g/dl (12.0-15.5); LYMPH # 2.1 10^3/uL (1.5-5.0); LYMPH % 29.2 % (24.0-44.0); MEAN CORPUSCULAR HGB CONC 32.2 g/dl (32.0-36.5); MONO # 0.7 10^3/uL (0.0-0.8); MONO % 9.7 % (2.0-8.0); NEUTROPHILS # 4.2 10^3/uL (1.5-8.5); NEUTROPHILS % 59.1 % (36.0-66.0); PLATELET COUNT, AUTOMATED 145 10^3/uL (150-450); RED BLOOD COUNT 4.69 10^6/uL (4.00-5.40); WHITE BLOOD COUNT 7.1 10^3/uL (4.0-10.0)
[2021-05-27 15:21] LABS: ALBUMIN 3.6 GM/DL (3.2-5.2); ALT/SGPT 244 U/L (12-78); BILIRUBIN,TOTAL 0.4 MG/DL (0.2-1.0); BLOOD UREA NITROGEN 14 MG/DL (7-18); CALCIUM LEVEL 9.1 MG/DL (8.5-10.1); CARBON DIOXIDE LEVEL 29 MEQ/L (21-32); CHLORIDE LEVEL 107 MEQ/L (98-107); CREATININE FOR GFR 0.68 MG/DL (0.55-1.30); GLOMERULAR FILTRATION RATE > 60.0 (>60); GLUCOSE, FASTING 92 MG/DL (70-100); SODIUM LEVEL 139 MEQ/L (136-145); TOTAL PROTEIN 7.1 GM/DL (6.4-8.2)
[2021-05-27 15:30] LABS: HEPATITIS B SURFACE ANTIBODY NEGATIVE (POSITIVE)
[2021-05-27 15:40] LABS: HEPATITIS B SURFACE ANTIGEN NEGATIVE (NEGATIVE)
[2021-05-27 16:09] LABS: HIV 1&2 SCREEN CENTAUR NEGATIVE (NEGATIVE)
== END ==
LOC: M PLALAB 12:50
PROVIDERS: ATTEND Internal Medicine Infectious Disease
DX: B18.2 Chronic viral hepatitis C (principal)

== ENCOUNTER → 2022-11-16 | Outpatient (REF) | payer OTHER, MEDICAID ==
[2022-11-16 17:55] LABS: HEMATOCRIT 27.8 % (36.0-47.0); HEMOGLOBIN 7.4 g/dl (12.0-15.5); MEAN CORPUSCULAR HEMOGLOBIN 19.7 pg (27.0-33.0); MEAN CORPUSCULAR HGB CONC 26.6 g/dl (32.0-36.5); MEAN CORPUSCULAR VOLUME 73.9 fl (80.0-96.0); PLATELET COUNT, AUTOMATED 330 10^3/uL (150-450); RED BLOOD COUNT 3.76 10^6/uL (4.00-5.40); WHITE BLOOD COUNT 8.4 10^3/uL (4.0-10.0)
[2022-11-16 18:11] LABS: ALBUMIN 3.9 G/DL (3.2-5.2); ALKALINE PHOSPHATASE 69 U/L (46-116); ALT/SGPT 21 U/L (7.0-40); AST/SGOT 17 U/L (<34); BILIRUBIN,TOTAL 0.2 MG/DL (0.3-1.2); BLOOD UREA NITROGEN 11 MG/DL (9-23); CALCIUM LEVEL 9.1 MG/DL (8.5-10.1); CARBON DIOXIDE LEVEL 29 MMOL/L (20-31); CHLORIDE LEVEL 103 MMOL/L (98-107); CHOLESTEROL LEVEL 159 MG/DL (<200); CHOLESTEROL RISK RATIO 4.18 (<5); CREATININE FOR GFR 0.76 MG/DL (0.55-1.30); GLOMERULAR FILTRATION RATE > 60.0 (>60); GLUCOSE, FASTING 87 MG/DL (60-100); LDL CHOLESTEROL 73.6 MG/DL (<100); POTASSIUM SERUM 3.7 MMOL/L (3.5-5.1); SODIUM LEVEL 140 MMOL/L (136-145); TOTAL PROTEIN 7.2 G/DL (5.7-8.2); TRIGLYCERIDES LEVEL 237 MG/DL (<150)
[2022-11-16 18:13] LABS: THYROID STIMULATING HORMONE 1.649 uIU/ML (0.55-4.78)
[2022-11-17 19:00] LABS: BASO % 0.3 % (0.0-1.0); EOS # 0.1 10^3/uL (0.0-0.5); EOS % 0.7 % (0.0-3.0); HEMATOCRIT 27.7 % (36.0-47.0); HEMOGLOBIN 7.4 g/dl (12.0-15.5); LYMPH # 2.3 10^3/uL (1.5-5.0); MEAN CORPUSCULAR HEMOGLOBIN 19.4 pg (27.0-33.0); MEAN CORPUSCULAR HGB CONC 26.7 g/dl (32.0-36.5); MEAN CORPUSCULAR VOLUME 72.7 fl (80.0-96.0); MONO # 0.6 10^3/uL (0.0-0.8); MONO % 6.8 % (2.0-8.0); NEUTROPHILS % 66.8 % (36.0-66.0); PLATELET COUNT, AUTOMATED 318 10^3/uL (150-450); RED BLOOD COUNT 3.81 10^6/uL (4.00-5.40)
[2022-11-17 19:05] LABS: PERCENT SATURATION 1.4 % (13.2-45.0)
[2022-11-17 19:10] LABS: FOLATE 20.9 NG/ML (>5.4)
[2022-11-18 14:11] LABS: HEPATITIS C QUANTITATION HCV Not Detected IU/mL (.)
== END ==
LOC: M LAB REF 16:25
PROVIDERS: ATTEND Family Medicine Addiction Medicine
DX: B19.20 Unspecified viral hepatitis C without hepatic coma (principal); Z68.42 Body mass index [BMI] 45.0-49.9, adult; D64.9 Anemia, unspecified

== ENCOUNTER → 2023-01-18 | Outpatient (REF) | payer OTHER ==
[~2023-01-18] MED LIST changes: +BUPR-71 PO; +BUSP15TA47 PO; +CARA1TAB6 PO; +FLON1SPR NARES; +FLUO20CA22 PO; +KAOP262S PO; +LAMO25TA4 PO; +OMEP40CA4 PO
== END ==
LOC: M LAB REF 16:29
PROVIDERS: ATTEND Family Medicine Addiction Medicine
DX: Z12.4 Encounter for screening for malignant neoplasm of cervix (principal)

== ENCOUNTER → 2023-06-29 | Outpatient (REF) | payer OTHER ==
[2023-06-29 12:05] LABS: BASO % 0.3 % (0.0-1.0); EOS # 0.1 10^3/uL (0.0-0.5); EOS % 1.4 % (0.0-3.0); HEMATOCRIT 44.2 % (36.0-47.0); LYMPH # 2.3 10^3/uL (1.5-5.0); LYMPH % 30.8 % (24.0-44.0); MEAN CORPUSCULAR HEMOGLOBIN 31.4 pg (27.0-33.0); MEAN CORPUSCULAR HGB CONC 33.9 g/dl (32.0-36.5); MEAN CORPUSCULAR VOLUME 92.5 fl (80.0-96.0); MONO # 0.6 10^3/uL (0.0-0.8); MONO % 7.9 % (2.0-8.0); NEUTROPHILS # 4.4 10^3/uL (1.5-8.5); NEUTROPHILS % 59.3 % (36.0-66.0); PLATELET COUNT, AUTOMATED 171 10^3/uL (150-450); RED BLOOD COUNT 4.78 10^6/uL (4.00-5.40); WHITE BLOOD COUNT 7.4 10^3/uL (4.0-10.0)
[2023-06-29 12:31] LABS: CHOLESTEROL LEVEL 186 MG/DL (<200); CHOLESTEROL RISK RATIO 4.37 (<5); HDL CHOLESTEROL 42.5 MG/DL (>40); LDL CHOLESTEROL 117.3 MG/DL (<100); NON-HDL-C 143.5 MG/DL; TRIGLYCERIDES LEVEL 131 MG/DL (<150)
[2023-06-29 12:34] LABS: THYROID STIMULATING HORMONE 3.779 uIU/ML (0.55-4.78)
[2023-06-29 12:59] LABS: HIV 1&2 SCREEN NEGATIVE (NEGATIVE)
== END ==
LOC: M LAB REF 11:41
PROVIDERS: ATTEND Family Medicine Addiction Medicine
DX: B18.2 Chronic viral hepatitis C (principal); D64.9 Anemia, unspecified; Z68.42 Body mass index [BMI] 45.0-49.9, adult

== ENCOUNTER → 2023-10-18 | Outpatient (REF) | payer OTHER ==
[~2023-10-18] MED LIST changes: +FLUO-365 PO; -FLUO20CA22 PO
[2023-10-18 21:27] LABS: APPEARANCE, URINE MANUAL CLEAR (CLEAR); COLOR, URINE MANUAL ORANGE (YELLOW)
[2023-10-18 21:28] LABS: BILIRUBIN, URINE MANUAL OBSCURED (NEGATIVE); GLUCOSE, URINE (UA) MANUAL OBSCURED mg/dL (NEGATIVE); KETONE, URINE MANUAL OBSCURED mg/dL (NEGATIVE); LEUKOCYTE ESTERASE, URINE MAN OBSCURED (NEGATIVE); NITRITE, URINE MANUAL OBSCURED (NEGATIVE); PH,URINE MAN 6.5 UNITS (5.0 - 7.0); PROTEIN, URINE MANUAL OBSCURED mg/dL (NEGATIVE); UROBILINOGEN, URINE MANUAL OBSCURED mg/dl (NORMAL)
[2023-10-18 21:29] LABS: BLOOD URINE MANUAL OBSCURED (NEGATIVE)
[2023-10-18 21:47] LABS: AMORPHOUS SEDIMENT, URINE SMALL AMOUNT (NEGATIVE); HYALINE CAST, URINE NONE SEEN /lpf (0-1); RBC, URINE 0-1 /hpf (0-3); SQUAMOUS EPITHELIAL CELL URINE SMALL AMOUNT /hpf (SMALL AMT)
[2023-10-18 21:48] LABS: BACTERIA, URINE SMALL AMOUNT
== END ==
LOC: M LAB REF 21:02
PROVIDERS: ATTEND Physician Assistant Medical
DX: N39.0 Urinary tract infection, site not specified (principal)

== ENCOUNTER 2024-05-02 21:01 | Inpatient (IN) | payer MEDICAID, OTHER ==
[~2024-05-02] VITALS: Ht 154.9 cm; Wt 84.3 kg
[~2024-05-02 21:01] MED LIST changes: -OLAN15TA13; -OLAN15TA13 PO; +OLAN15TA69; +OLAN15TA69 PO
[2024-05-02 22:00] LABS: HEMATOCRIT 25.8 % (36.0-47.0); HEMOGLOBIN 7.6 g/dl (12.0-15.5); MEAN CORPUSCULAR HEMOGLOBIN 22.2 pg (27.0-33.0); MEAN CORPUSCULAR HGB CONC 29.5 g/dl (32.0-36.5); MEAN CORPUSCULAR VOLUME 75.2 fl (80.0-96.0); PLATELET COUNT, AUTOMATED 208 10^3/uL (150-450); RED BLOOD COUNT 3.43 10^6/uL (4.00-5.40); WHITE BLOOD COUNT 5.5 10^3/uL (4.0-10.0)
[2024-05-02 22:22] LABS: ETHYL ALCOHOL (ETHANOL) 0.215 % (0.000-0.010)
[2024-05-02 22:23] LABS: SALICYLATE LEVEL < 3.0 MG/DL (<30)
[2024-05-02 22:24] LABS: ALBUMIN 3.3 G/DL (3.2-5.2); ALKALINE PHOSPHATASE 54 U/L (35-104); ALT/SGPT 14 U/L (7.0-40); AMPHETAMINES LEVEL URINE NEGATIVE (NEGATIVE); AST/SGOT 15 U/L (<34); BARBITURATES URINE NEGATIVE (NEGATIVE); BENZODIAZEPINES URINE NEGATIVE (NEGATIVE); BILIRUBIN,DIRECT < 0.1 MG/DL (<0.4); BILIRUBIN,TOTAL 0.2 MG/DL (0.3-1.2); BLOOD UREA NITROGEN 21 MG/DL (9-23); CALCIUM LEVEL 8.7 MG/DL (8.5-10.1); CARBON DIOXIDE LEVEL 22 MMOL/L (20-31); CHLORIDE LEVEL 110 MMOL/L (98-107); COCAINE METABOLITE URINE NEGATIVE (NEGATIVE); GLOMERULAR FILTRATION RATE > 60.0 (>60); GLUCOSE, FASTING 105 MG/DL (60-100); POTASSIUM SERUM 4.3 MMOL/L (3.5-5.1); SODIUM LEVEL 143 MMOL/L (136-145); TOTAL PROTEIN 6.5 G/DL (5.7-8.2)
[2024-05-02 22:25] LABS: METHADONE URINE NEGATIVE (NEGATIVE); OPIATES URINE NEGATIVE (NEGATIVE); PHENCYCLIDINE URINE NEGATIVE (NEGATIVE)
[2024-05-02 22:26] LABS: THYROID STIMULATING HORMONE 3.799 uIU/ML (0.55-4.78)
[2024-05-02 22:29] LABS: HCG, SERUM QUALITATIVE NEGATIVE (NEGATIVE)
[2024-05-02] MEDS: NICOTINE 21MG/24HR 1 EA TRANSDERMAL TD ONE (22:36)
[2024-05-02 22:42] LABS: CANNABINOIDS URINE POSITIVE (NEGATIVE)
[2024-05-02] MEDS: LORazepam 1 MG TAB PO ONE (22:50)
[2024-05-03] VITALS (12 sets, daily range): BP systolic 121–186; BP diastolic 65–97; TEMP 97.2–98.9; O2SAT 97–99
[2024-05-03] MEDS ORDERED: SUCR1TA PO (00:14)
[2024-05-03] MEDS ORDERED: LAMO100T3 PO (00:14)
[2024-05-03] MEDS ORDERED: SUBO12MI SL (00:14)
[2024-05-03] MEDS ORDERED: DOXE10CA PO (00:14)
[2024-05-03] MEDS ORDERED: OMEP40CA5 PO (00:14)
[2024-05-03] MEDS: ACETAMINOPHEN 325 MG TAB PO ONE (00:15)
[2024-05-03] MEDS ORDERED: LEVOTAB10 PO (00:16)
[2024-05-03] MEDS ORDERED: SUMA100T2 PO (00:16)
[2024-05-03] MEDS ORDERED: ALBU8.5H INH (00:16)
[2024-05-03] MEDS ORDERED: TOPI-21 PO (00:16)
[2024-05-03] MEDS ORDERED: HOME MED LIST COMPLETE! XX SCH (00:20)
[2024-05-03 00:30] LABS: INR 0.94; PROTHROMBIN TIME 12.9 SECONDS (12.5-14.5)
[2024-05-03] MEDS: SUMAtriptan SUCCINATE 6MG/0.5ML VIAL SC ONE (01:05)
[2024-05-03] MEDS ORDERED: MAALOX 30 ML SUSP *UDC PO PRN (01:50)
[2024-05-03] MEDS ORDERED: ACETAMINOPHEN 325 MG TAB PO PRN (01:50)
[2024-05-03] MEDS ORDERED: ALBUTEROL 90 MCG/ACT 8GM HFA INHALER INH PRN (01:55)
[2024-05-03 02:28] LABS: IRON (FE) 7 UG/DL (50-170); PERCENT SATURATION 1.7 % (13.2-45.0); TOTAL IRON BINDING CAPACITY 424 UG/DL (250-425)
[2024-05-03 02:31] LABS: FERRITIN 3.5 NG/ML (7.3-270.7)
[2024-05-03 03:37] LABS: PROCALCITONIN 0.05 ng/ml
[2024-05-03] MEDS: THIAMINE 100 MG TAB PO SCH (04:10)
[2024-05-03] MEDS: lamoTRIgine 100MG TAB PO SCH (04:52)
[2024-05-03] MEDS: DOXEPIN 25 MG CAP PO SCH (04:52)
[2024-05-03] MEDS: FLUoxetine 20MG CAP PO SCH (07:48)
[2024-05-03] MEDS: busPIRone 5 MG TAB PO SCH (07:48)
[2024-05-03] MEDS: SUCRALFATE 1 GM TAB PO SCH (07:48)
[2024-05-03] MEDS: MULTIVITAMINS/MINERALS THERAP 1 TAB PO SCH (07:48)
[2024-05-03] MEDS: DOCUSATE SODIUM 100MG CAPSULE PO SCH (07:49)
[2024-05-03] MEDS: FERROUS SULFATE 325MG TAB PO SCH (07:49)
[2024-05-03] MEDS: TOPIRAMATE (TopAMAX) 25 MG TAB PO SCH (07:49)
[2024-05-03] MEDS: CETIRIZINE (ZyrTEC) 10 MG TAB PO SCH (07:49)
[2024-05-03] MEDS: FOLIC ACID 1MG TAB PO SCH (07:49)
[2024-05-03] MEDS: buPROPion **SR TABLET** (ZYBAN) 150MG PO SCH (08:07)
[2024-05-03] MEDS ORDERED: ISOVUE-370 76% 100ML VIAL As Ordered ONE (09:23)
[2024-05-03] MEDS: ONDANSETRON 4MG 2ML VIAL IV PRN (10:26)
[2024-05-03 10:36] LABS: MEAN CORPUSCULAR HEMOGLOBIN 23.7 pg (27.0-33.0); MEAN CORPUSCULAR HGB CONC 31.3 g/dl (32.0-36.5); MEAN CORPUSCULAR VOLUME 75.6 fl (80.0-96.0); PLATELET COUNT, AUTOMATED 177 10^3/uL (150-450); RED BLOOD COUNT 4.22 10^6/uL (4.00-5.40); WHITE BLOOD COUNT 6.8 10^3/uL (4.0-10.0)
[2024-05-03 10:51] LABS: HEMATOCRIT 31.9 % (36.0-47.0)
[2024-05-03 11:05] LABS: BLOOD UREA NITROGEN 17 MG/DL (9-23); CARBON DIOXIDE LEVEL 25 MMOL/L (20-31); CHLORIDE LEVEL 102 MMOL/L (98-107); CREATININE FOR GFR 0.47 MG/DL (0.55-1.30); GLOMERULAR FILTRATION RATE > 60.0 (>60); GLUCOSE, FASTING 98 MG/DL (60-100); POTASSIUM SERUM 3.7 MMOL/L (3.5-5.1); SODIUM LEVEL 136 MMOL/L (136-145)
[2024-05-03 12:08] LABS: HEMATOCRIT 32.1 % (36.0-47.0); HEMOGLOBIN 10.1 g/dl (12.0-15.5); MEAN CORPUSCULAR HEMOGLOBIN 23.7 pg (27.0-33.0); MEAN CORPUSCULAR HGB CONC 31.5 g/dl (32.0-36.5); MEAN CORPUSCULAR VOLUME 75.4 fl (80.0-96.0); PLATELET COUNT, AUTOMATED 186 10^3/uL (150-450); RED BLOOD COUNT 4.26 10^6/uL (4.00-5.40); WHITE BLOOD COUNT 6.9 10^3/uL (4.0-10.0)
[2024-05-03] MEDS: PANTOPRAZOLE 40MG TAB (PROTONIX) PO SCH (16:13)
[2024-05-03] MEDS: BUPRENORPHINE/NALOXONE 8-2MG SUBLINGUAL TABLET(SUBOXONE) SL SCH (18:32)
[2024-05-03] MEDS: BUPRENORPHINE/NALOXONE 2-0.5MG SUBLINGUAL TABLET(SUBOXONE) SL SCH (18:32)
[2024-05-03] MEDS: SUMAtriptan SUCCINATE 50MG TABLET PO PRN (18:54)
[2024-05-03 20:21] LABS: KETONE, URINE AUTO RFX NEGATIVE (NEGATIVE); LEUKOCYTE ESTERASE UR AUTO RFX NEGATIVE (NEGATIVE); NITRITE, URINE AUTO RFX NEGATIVE (NEGATIVE); RBC, URINE AUTO RFX 0 /HPF (0-3); SQUAM EPITHELIAL CELL UR AURFX 1 /HPF (0-6); WBC, URINE AUTO RFX 0 /HPF (0-3)
[2024-05-04 00:02] VITALS: BP 124/80; TEMP 98.3; O2SAT 99
[2024-05-04 00:18] VITALS: BP 124/80
[2024-05-04] MEDS: LORazepam 2 MG TAB PO PRN (00:25)
[2024-05-04 01:32] VITALS: BP 128/60
[2024-05-04 04:00] VITALS: BP 122/64; TEMP 97.3; O2SAT 100
[2024-05-04 07:32] LABS: HEMATOCRIT 31.5 % (36.0-47.0); HEMOGLOBIN 9.7 g/dl (12.0-15.5); MEAN CORPUSCULAR HEMOGLOBIN 23.5 pg (27.0-33.0); MEAN CORPUSCULAR HGB CONC 30.8 g/dl (32.0-36.5); MEAN CORPUSCULAR VOLUME 76.5 fl (80.0-96.0); PLATELET COUNT, AUTOMATED 176 10^3/uL (150-450); RED BLOOD COUNT 4.12 10^6/uL (4.00-5.40); WHITE BLOOD COUNT 5.5 10^3/uL (4.0-10.0)
[2024-05-04 08:00] VITALS: BP 122/78; O2SAT 100
[2024-05-04 08:06] LABS: ALBUMIN 3.2 G/DL (3.2-5.2); ALKALINE PHOSPHATASE 54 U/L (35-104); ALT/SGPT 13 U/L (7.0-40); AST/SGOT 10 U/L (<34); BILIRUBIN,TOTAL 0.3 MG/DL (0.3-1.2); BLOOD UREA NITROGEN 21 MG/DL (9-23); CALCIUM LEVEL 8.6 MG/DL (8.5-10.1); CARBON DIOXIDE LEVEL 26 MMOL/L (20-31); CHLORIDE LEVEL 108 MMOL/L (98-107); CREATININE FOR GFR 0.64 MG/DL (0.55-1.30); GLOMERULAR FILTRATION RATE > 60.0 (>60); GLUCOSE, FASTING 102 MG/DL (60-100); MAGNESIUM LEVEL 2.1 MG/DL (1.8-2.4); POTASSIUM SERUM 4.5 MMOL/L (3.5-5.1); SODIUM LEVEL 143 MMOL/L (136-145); TOTAL PROTEIN 6.2 G/DL (5.7-8.2)
[2024-05-04 12:00] VITALS: BP 135/68; O2SAT 99
[2024-05-04] MEDS: MOM 30ML SUSPENSION UDC PO PRN (12:46)
[2024-05-04] MEDS ORDERED: THIA100TA PO (14:16)
[2024-05-04] MEDS ORDERED: FERR1TAB8 PO (14:16)
[2024-05-04] MEDS ORDERED: PANT40TA29 PO (14:16)
[2024-05-04] MEDS: SENNA 8.6 MG TAB (SENOKOT) PO PRN (16:17)
[2024-05-04] MEDS: MIRALAX *UNIT DOSE* 17GM PACKET PO PRN (16:17)
[2024-05-06] MEDS ORDERED: FERROUS SULFATE 325MG TAB PO SCH (09:00)
== END 2024-05-04 17:55 | DRG 663 ==
LOC: M ED 21:01 → M ED INP 05-03 01:46 → M MS5PR 05-03 15:15
PROVIDERS: ADMIT Student in an Organized Health Care Education/Training Program; ATTEND Student in an Organized Health Care Education/Training Program
PROC: 30233N1 Transfusion of Nonautologous Red Blood Cells into Peripheral Vein, Percutaneous Approach (ICD-10-PCS; principal; 2024-05-03)
DX: D50.9 Iron deficiency anemia, unspecified (principal); R45.851 Suicidal ideations; F11.20 Opioid dependence, uncomplicated; J45.20 Mild intermittent asthma, uncomplicated; K44.9 Diaphragmatic hernia without obstruction or gangrene; E66.9 Obesity, unspecified; K21.9 Gastro-esophageal reflux disease without esophagitis; F10.129 Alcohol abuse with intoxication, unspecified; K29.20 Alcoholic gastritis without bleeding; F39 Unspecified mood [affective] disorder; Z68.35 Body mass index [BMI] 35.0-35.9, adult; Z79.899 Other long term (current) drug therapy; Z88.0 Allergy status to penicillin; Z90.49 Acquired absence of other specified parts of digestive tract

== ENCOUNTER 2024-05-04 16:07 | Inpatient (IN) | payer MEDICAID, OTHER ==
[~2024-05-04] VITALS: Ht 157.5 cm; Wt 93.7 kg
[~2024-05-04 16:07] MED LIST changes: +ALBU8.5H INH; +DOXE10CA PO; +LAMO100T3 PO; +LEVOTAB10 PO; +OMEP40CA5 PO; +SUBO12MI SL; +SUMA100T2 PO; +THIA100TA PO; +TOPI-21 PO
[2024-05-04] MEDS ORDERED: MOM 30ML SUSPENSION UDC PO PRN (17:10)
[2024-05-04 20:00] VITALS: BP 142/89; TEMP 97.6; O2SAT 98
[2024-05-04] MEDS: traZODone 50 MG TAB PO PRN (20:17)
[2024-05-04] MEDS: LORazepam 1 MG TAB PO PRN (20:18)
[2024-05-04] MEDS ORDERED: ALBUTEROL 90 MCG/ACT 8GM HFA INHALER INH PRN (21:25)
[2024-05-04] MEDS: ACETAMINOPHEN 325 MG TAB PO PRN (21:44)
[2024-05-04] MEDS: TOPIRAMATE (TopAMAX) 25 MG TAB PO SCH (21:44)
[2024-05-04] MEDS: busPIRone 5 MG TAB PO SCH (21:44)
[2024-05-04] MEDS: lamoTRIgine 100MG TAB PO SCH (21:44)
[2024-05-04] MEDS: diphenhydrAMINE 25MG CAP PO PRN (22:50)
[2024-05-04] MEDS: OLANZapine 5 MG TAB PO PRN (22:50)
[2024-05-05] MEDS: NICOTINE 14 MG/24 HR TRANSDERMAL TD SCH (09:00)
[2024-05-05] MEDS: BUPRENORPHINE/NALOXONE 8-2MG SUBLINGUAL TABLET(SUBOXONE) SL SCH (15:33)
[2024-05-05] MEDS: BUPRENORPHINE/NALOXONE 2-0.5MG SUBLINGUAL TABLET(SUBOXONE) SL SCH (15:33)
[2024-05-05] MEDS: buPROPion **XL** TABLET 150MG (WELLBUTRIN XL) PO SCH (15:33)
[2024-05-05] MEDS: PANTOPRAZOLE 40MG TAB (PROTONIX) PO SCH (15:33)
[2024-05-05 17:29] VITALS: BP 163/94; TEMP 96.9; O2SAT 99
[2024-05-05 18:00] VITALS: BP 122/76
[2024-05-05] MEDS: THIAMINE 100 MG TAB PO SCH (20:51)
[2024-05-05] MEDS: SUCRALFATE 1 GM TAB PO SCH (20:51)
[2024-05-05] MEDS: SUMAtriptan SUCCINATE 25MG TABLET PO PRN (21:17)
[2024-05-06] MEDS: MAALOX 30 ML SUSP *UDC PO PRN (06:33)
[2024-05-06 06:37] VITALS: BP 126/64; TEMP 97.8; O2SAT 100
[2024-05-06 06:49] LABS: HEMATOCRIT 33.5 % (36.0-47.0); HEMOGLOBIN 10.1 g/dl (12.0-15.5); MEAN CORPUSCULAR HEMOGLOBIN 23.8 pg (27.0-33.0); MEAN CORPUSCULAR HGB CONC 30.1 g/dl (32.0-36.5); PLATELET COUNT, AUTOMATED 161 10^3/uL (150-450); RED BLOOD COUNT 4.24 10^6/uL (4.00-5.40)
[2024-05-06 07:22] LABS: BLOOD UREA NITROGEN 28 MG/DL (9-23); CALCIUM LEVEL 8.4 MG/DL (8.5-10.1); CARBON DIOXIDE LEVEL 22 MMOL/L (20-31); CHLORIDE LEVEL 110 MMOL/L (98-107); CREATININE FOR GFR 0.66 MG/DL (0.55-1.30); GLOMERULAR FILTRATION RATE > 60.0 (>60); GLUCOSE, FASTING 96 MG/DL (60-100); SODIUM LEVEL 141 MMOL/L (136-145)
[2024-05-06] MEDS: FERROUS SULFATE 325MG TAB PO SCH (08:24)
[2024-05-06] MEDS: LOPERAMIDE 2 MG CAPLET PO PRN (13:04)
[2024-05-06 15:40] VITALS: BP 125/72; TEMP 97.4; O2SAT 99
[2024-05-07 06:26] VITALS: BP 120/56; TEMP 97.8; O2SAT 100
[2024-05-07 15:43] VITALS: BP 129/73; TEMP 97.4; O2SAT 100
[2024-05-08] MEDS ORDERED: BUPR150T12 PO (01:00)
[2024-05-08] MEDS ORDERED: TRAZ-252 PO (01:00)
[2024-05-08] MEDS ORDERED: TOPI-21 PO (01:00)
[2024-05-08] MEDS ORDERED: LAMO100T3 PO (01:00)
[2024-05-08] MEDS ORDERED: BUSP15TA47 PO (01:00)
[2024-05-08 06:35] VITALS: BP 136/62; TEMP 97.6; O2SAT 98
== END 2024-05-08 11:10 | disposition home or self-care (01) | DRG 753 ==
LOC: M PSY 17:56
PROVIDERS: ADMIT Internal Medicine; ATTEND Psychiatry & Neurology Psychiatry
DX: F31.81 Bipolar II disorder (principal); J45.20 Mild intermittent asthma, uncomplicated; D50.9 Iron deficiency anemia, unspecified; F10.229 Alcohol dependence with intoxication, unspecified; F60.3 Borderline personality disorder; Z79.899 Other long term (current) drug therapy; Z88.0 Allergy status to penicillin; K21.9 Gastro-esophageal reflux disease without esophagitis; F17.290 Nicotine dependence, other tobacco product, uncomplicated; R45.851 Suicidal ideations; E66.9 Obesity, unspecified; Z68.37 Body mass index [BMI] 37.0-37.9, adult

== ENCOUNTER → 2024-05-16 | Outpatient (CLI) | payer MEDICAID ==
[~2024-05-16] MED LIST changes: +BUPR150T12 PO; +TRAZ-252 PO
== END ==
LOC: M OUTALCOH 07:47
PROVIDERS: ATTEND Psychiatry & Neurology Psychiatry
DX: F12.10 Cannabis abuse, uncomplicated (principal); F11.20 Opioid dependence, uncomplicated; Z72.0 Tobacco use

== ENCOUNTER 2024-06-21 13:00 | Outpatient (RCR) | payer MEDICAID ==
[~2024-06-21 13:00] MED LIST changes: +LAMI1TAB7 PO; +TOPA50TA8 PO; +TRAZ-186 PO
== END 2024-06-28 ==
LOC: M OUTALCOH 13:00
PROVIDERS: ATTEND Psychiatry & Neurology Psychiatry
DX: F12.10 Cannabis abuse, uncomplicated (principal); F11.20 Opioid dependence, uncomplicated; Z72.0 Tobacco use

== ENCOUNTER 2024-07-14 14:04 | Emergency (ER) | payer MEDICAID, OTHER ==
[~2024-07-14 14:04] MED LIST changes: +LAMO-18 PO; -LAMO25TA4 PO
[2024-07-14 14:13] VITALS: TEMP 98.8
[2024-07-14] MEDS: diphenhydrAMINE 50MG/ML VIAL IV ONE (14:30)
[2024-07-14] MEDS: methylPREDNISolone 125MG 2ML VIAL IV ONE (14:30)
[2024-07-14] MEDS: FAMOTIDINE 20MG/2ML VIAL IVP ONE (14:30)
[2024-07-14 14:47] LABS: BASO % 0.3 % (0.0-1.0); EOS % 0.3 % (0.0-3.0); HEMATOCRIT 37.1 % (36.0-47.0); HEMOGLOBIN 11.5 g/dl (12.0-15.5); LYMPH # 2.9 10^3/uL (1.5-5.0); MEAN CORPUSCULAR HEMOGLOBIN 26.5 pg (27.0-33.0); MEAN CORPUSCULAR VOLUME 85.5 fl (80.0-96.0); MONO # 0.8 10^3/uL (0.0-0.8); MONO % 8.1 % (2.0-8.0); NEUTROPHILS # 5.6 10^3/uL (1.5-8.5); NEUTROPHILS % 59.8 % (36.0-66.0); PLATELET COUNT, AUTOMATED 183 10^3/uL (150-450); RED BLOOD COUNT 4.34 10^6/uL (4.00-5.40); WHITE BLOOD COUNT 9.4 10^3/uL (4.0-10.0)
[2024-07-14 15:09] LABS: BLOOD UREA NITROGEN 19 MG/DL (9-23); CALCIUM LEVEL 9.3 MG/DL (8.5-10.1); CARBON DIOXIDE LEVEL 20 MMOL/L (20-31); CHLORIDE LEVEL 107 MMOL/L (98-107); CREATININE FOR GFR 0.58 MG/DL (0.55-1.30); GLOMERULAR FILTRATION RATE > 90.0 (>60); GLUCOSE, FASTING 118 MG/DL (60-100); POTASSIUM SERUM 3.9 MMOL/L (3.5-5.1); SODIUM LEVEL 141 MMOL/L (136-145)
[2024-07-14 15:13] LABS: HCG, SERUM QUALITATIVE NEGATIVE (NEGATIVE)
[2024-07-14] MEDS: IPRATROPIUM 0.5MG/ALBUTEROL 2.5MG INH SOL UD 3ML NEB ONE (17:32)
[2024-07-14] MEDS ORDERED: EPIP0.3I2 IM (20:20)
[2024-07-14 20:32] VITALS: BP 143/90; O2SAT 98
== END 2024-07-14 20:34 | disposition home or self-care (01) ==
LOC: M ED 14:04
DX: T78.40XA Allergy, unspecified, initial encounter (principal); J45.909 Unspecified asthma, uncomplicated; B18.2 Chronic viral hepatitis C; K21.9 Gastro-esophageal reflux disease without esophagitis; D50.9 Iron deficiency anemia, unspecified; F17.290 Nicotine dependence, other tobacco product, uncomplicated; Z88.0 Allergy status to penicillin; Z88.1 Allergy status to other antibiotic agents; Z91.030 Bee allergy status; Z79.51 Long term (current) use of inhaled steroids; Z79.899 Other long term (current) drug therapy
CPT/HCPCS: 71045; 80048; 84703; 85025; 93005; 93041; 94640; 94760; 96374; 99285; J1200; J1308; J2919

== ENCOUNTER 2024-09-13 15:00 | Outpatient (RCR) | payer OTHER, MEDICAID ==
[~2024-09-13 15:00] MED LIST changes: +EPIP0.3I2 IM; +PANT40TA29
== END 2024-09-28 ==
LOC: M OUTALCOH 15:00
PROVIDERS: ATTEND Psychiatry & Neurology Psychiatry
DX: F12.10 Cannabis abuse, uncomplicated (principal); F11.20 Opioid dependence, uncomplicated; Z72.0 Tobacco use

== ENCOUNTER → 2024-09-20 | Outpatient (REF) | payer MEDICAID, OTHER ==
[2024-09-20 17:04] LABS: ALT/SGPT 29 U/L (7.0-40); AST/SGOT 27 U/L (<34); CALCIUM LEVEL 9.3 MG/DL (8.5-10.1); CARBON DIOXIDE LEVEL 25 MMOL/L (20-31); CHLORIDE LEVEL 106 MMOL/L (98-107); CREATININE FOR GFR 0.79 MG/DL (0.55-1.30); GLOMERULAR FILTRATION RATE > 90.0 (>60); POTASSIUM SERUM 4.5 MMOL/L (3.5-5.1); SODIUM LEVEL 143 MMOL/L (136-145)
[2024-09-20 17:05] LABS: CPK CREATINE PHOSPHOKINASE 155 U/L (34-145)
[2024-09-20 17:22] LABS: BASO # 0.0 10^3/uL (0.0-0.2); BASO % 0.3 % (0.0-1.0); EOS # 0.1 10^3/uL (0.0-0.5); EOS % 1.1 % (0.0-3.0); LYMPH # 1.3 10^3/uL (1.5-5.0); LYMPH % 17.8 % (24.0-44.0); MONO # 0.5 10^3/uL (0.0-0.8); MONO % 7.0 % (2.0-8.0); NEUTROPHILS # 5.4 10^3/uL (1.5-8.5); NEUTROPHILS % 73.3 % (36.0-66.0); PLATELET COUNT, AUTOMATED 234 10^3/uL (150-450)
[2024-09-20 17:39] LABS: ERYTHROCYTE SEDIMENTATION RATE 15 mm/hr (0-20)
== END ==
LOC: M LAB REF 16:27
PROVIDERS: ATTEND Family Medicine Addiction Medicine
DX: M79.10 Myalgia, unspecified site (principal)

== ENCOUNTER 2024-09-23 23:45 | Emergency (ER) | payer MEDICAID, OTHER ==
[~2024-09-23] VITALS: Ht 154.9 cm; Wt 85.8 kg
[2024-09-24 00:49] LABS: PLATELET COUNT, AUTOMATED 236 10^3/uL (150-450)
[2024-09-24 01:04] LABS: ETHYL ALCOHOL (ETHANOL) 0.112 % (0.000-0.010)
[2024-09-24 01:04] LABS: AMPHETAMINES LEVEL URINE NEGATIVE (NEGATIVE); BARBITURATES URINE NEGATIVE (NEGATIVE); BENZODIAZEPINES URINE NEGATIVE (NEGATIVE); COCAINE METABOLITE URINE NEGATIVE (NEGATIVE); METHADONE URINE NEGATIVE (NEGATIVE); OPIATES URINE NEGATIVE (NEGATIVE); PHENCYCLIDINE URINE NEGATIVE (NEGATIVE)
[2024-09-24 01:06] LABS: CALCIUM LEVEL 9.2 MG/DL (8.5-10.1); CARBON DIOXIDE LEVEL 24 MMOL/L (20-31); CHLORIDE LEVEL 109 MMOL/L (98-107); CREATININE FOR GFR 0.69 MG/DL (0.55-1.30); GLOMERULAR FILTRATION RATE > 90.0 (>60); POTASSIUM SERUM 3.8 MMOL/L (3.5-5.1); SODIUM LEVEL 147 MMOL/L (136-145)
[2024-09-24 01:31] LABS: CANNABINOIDS URINE POSITIVE (NEGATIVE)
[2024-09-24 02:30] VITALS: BP 128/84; TEMP 97.7; O2SAT 98
== END 2024-09-24 03:42 | disposition left against medical advice (07) ==
LOC: M ED 23:45
DX: Z53.21 Procedure and treatment not carried out due to patient leaving prior to being seen by health care provider (principal)

== ENCOUNTER 2024-09-25 22:02 | Emergency (ER) | payer OTHER ==
[~2024-09-25] VITALS: Ht 154.9 cm; Wt 88.9 kg
[2024-09-26 00:24] LABS: BASO # 0.0 10^3/uL (0.0-0.2); BASO % 0.2 % (0.0-1.0); EOS # 0.1 10^3/uL (0.0-0.5); EOS % 1.2 % (0.0-3.0); LYMPH # 2.5 10^3/uL (1.5-5.0); LYMPH % 27.9 % (24.0-44.0); MONO # 0.7 10^3/uL (0.0-0.8); MONO % 8.2 % (2.0-8.0); NEUTROPHILS # 5.5 10^3/uL (1.5-8.5); NEUTROPHILS % 62.3 % (36.0-66.0); PLATELET COUNT, AUTOMATED 187 10^3/uL (150-450)
[2024-09-26 00:39] LABS: ETHYL ALCOHOL (ETHANOL) < 0.003 % (0.000-0.010)
[2024-09-26 00:48] LABS: ALT/SGPT 23 U/L (7.0-40); AST/SGOT 20 U/L (<34); CALCIUM LEVEL 8.4 MG/DL (8.5-10.1); CARBON DIOXIDE LEVEL 25 MMOL/L (20-31); CHLORIDE LEVEL 108 MMOL/L (98-107); CREATININE FOR GFR 0.80 MG/DL (0.55-1.30); GLOMERULAR FILTRATION RATE > 90.0 (>60); MAGNESIUM LEVEL 1.8 MG/DL (1.8-2.4); PHOSPHORUS LEVEL 4.2 MG/DL (2.5-4.9); POTASSIUM SERUM 3.7 MMOL/L (3.5-5.1); SODIUM LEVEL 143 MMOL/L (136-145)
[2024-09-26 02:15] VITALS: BP 130/63; TEMP 98.4; O2SAT 97
== END 2024-09-26 02:31 | disposition home or self-care (01) ==
LOC: M ED 22:02
DX: R53.83 Other fatigue (principal); G40.909 Epilepsy, unspecified, not intractable, without status epilepticus; D64.9 Anemia, unspecified; F17.290 Nicotine dependence, other tobacco product, uncomplicated; F12.10 Cannabis abuse, uncomplicated; F10.10 Alcohol abuse, uncomplicated; Z88.1 Allergy status to other antibiotic agents; Z88.0 Allergy status to penicillin; Z91.030 Bee allergy status; Z79.899 Other long term (current) drug therapy

== ENCOUNTER 2024-10-08 14:40 | Emergency (ER) | payer OTHER ==
[~2024-10-08] VITALS: Ht 154.9 cm; Wt 87.6 kg
[2024-10-08 15:33] LABS: BASO # 0.0 10^3/uL (0.0-0.2); BASO % 0.5 % (0.0-1.0); EOS # 0.0 10^3/uL (0.0-0.5); EOS % 0.3 % (0.0-3.0); LYMPH # 1.7 10^3/uL (1.5-5.0); LYMPH % 19.5 % (24.0-44.0); MONO # 0.6 10^3/uL (0.0-0.8); MONO % 6.8 % (2.0-8.0); NEUTROPHILS # 6.2 10^3/uL (1.5-8.5); NEUTROPHILS % 71.6 % (36.0-66.0); PLATELET COUNT, AUTOMATED 184 10^3/uL (150-450)
[2024-10-08 15:59] LABS: THYROXINE (T4) 7.6 UG/DL (4.5-10.9)
[2024-10-08 16:04] LABS: HCG, SERUM QUALITATIVE POSITIVE (NEGATIVE)
[2024-10-08 16:11] LABS: ALT/SGPT 30 U/L (7.0-40); AST/SGOT 49 U/L (<34); CALCIUM LEVEL 9.1 MG/DL (8.5-10.1); CARBON DIOXIDE LEVEL 20 MMOL/L (20-31); CHLORIDE LEVEL 109 MMOL/L (98-107); CREATININE FOR GFR 0.68 MG/DL (0.55-1.30); GLOMERULAR FILTRATION RATE > 90.0 (>60); POTASSIUM SERUM 4.0 MMOL/L (3.5-5.1); SODIUM LEVEL 141 MMOL/L (136-145)
[2024-10-08 16:28] LABS: HCG, SERUM QUANTITATIVE 280.7 MIU/ML (<4.2)
[2024-10-08] MEDS ORDERED: PRED20TA PO (16:45)
[2024-10-08 17:24] VITALS: BP 159/66; TEMP 99.3; O2SAT 98
== END 2024-10-08 17:38 | disposition home or self-care (01) ==
LOC: M ED 14:40
DX: J45.901 Unspecified asthma with (acute) exacerbation (principal); Z32.01 Encounter for pregnancy test, result positive; I45.81 Long QT syndrome; K21.9 Gastro-esophageal reflux disease without esophagitis; B18.2 Chronic viral hepatitis C; F31.9 Bipolar disorder, unspecified; F41.9 Anxiety disorder, unspecified; F43.10 Post-traumatic stress disorder, unspecified; Z88.0 Allergy status to penicillin; Z88.1 Allergy status to other antibiotic agents; Z91.030 Bee allergy status; Z79.52 Long term (current) use of systemic steroids; Z79.899 Other long term (current) drug therapy
CPT/HCPCS: 80048; 80076; 83880; 84436; 84443; 84702; 84703; 85025; 87040; 87486; 87581; 87633; 87798; 93005; 93041; 94760; 96374; 99285; J2919

== ENCOUNTER 2024-11-13 10:17 | Emergency (ER) | payer MEDICAID, OTHER ==
[~2024-11-13] VITALS: Ht 157.5 cm; Wt 87.7 kg
[~2024-11-13 10:17] MED LIST changes: +PRED20TA PO
[2024-11-13] MEDS ORDERED: diphenhydrAMINE 50 MG/ML VIAL IV ONE (11:20)
[2024-11-13] MEDS ORDERED: ACETAMINOPHEN *IV* 1,000 MG in IV 1 EA IV ONE (11:20)
[2024-11-13] MEDS ORDERED: NS (Normal Saline) 0.9% 1,000 ML IV ONE (11:20)
[2024-11-13] MEDS: ACETAMINOPHEN 500 MG TAB PO ONE (12:07)
[2024-11-13] MEDS: METOCLOPRAMIDE 10 MG TAB PO ONE (12:07)
[2024-11-13 12:12] LABS: KETONE, URINE AUTO RFX NEGATIVE (NEGATIVE); LEUKOCYTE ESTERASE UR AUTO RFX NEGATIVE (NEGATIVE); MUCUS, URINE RFX SMALL (NEGATIVE); NITRITE, URINE AUTO RFX NEGATIVE (NEGATIVE); RBC, URINE AUTO RFX 0 /HPF (0-3); SQUAM EPITHELIAL CELL UR AURFX 2 /HPF (0-6); WBC, URINE AUTO RFX 1 /HPF (0-3)
[2024-11-13 12:14] LABS: BASO # 0.0 10^3/uL (0.0-0.2); BASO % 0.1 % (0.0-1.0); EOS # 0.0 10^3/uL (0.0-0.5); EOS % 0.1 % (0.0-3.0); LYMPH # 1.2 10^3/uL (1.5-5.0); LYMPH % 8.6 % (24.0-44.0); MONO # 0.8 10^3/uL (0.0-0.8); MONO % 5.8 % (2.0-8.0); NEUTROPHILS # 11.4 10^3/uL (1.5-8.5); NEUTROPHILS % 84.9 % (36.0-66.0); PLATELET COUNT, AUTOMATED 285 10^3/uL (150-450)
[2024-11-13 12:51] LABS: CPK CREATINE PHOSPHOKINASE 69 U/L (34-145)
[2024-11-13 12:52] LABS: ALT/SGPT 15 U/L (7.0-40); AST/SGOT 17 U/L (<34); CALCIUM LEVEL 9.4 MG/DL (8.5-10.1); CARBON DIOXIDE LEVEL 23 MMOL/L (20-31); CHLORIDE LEVEL 103 MMOL/L (98-107); CK-MB VALUE MASS 1.1 NG/ML (<3.6); CREATININE FOR GFR 0.53 MG/DL (0.55-1.30); GLOMERULAR FILTRATION RATE > 90.0 (>60); MB/CK RELATIVE INDEX 1.59 (< OR =4); POTASSIUM SERUM 4.1 MMOL/L (3.5-5.1); SODIUM LEVEL 138 MMOL/L (136-145)
[2024-11-13 13:38] LABS: HCG, SERUM QUANTITATIVE 129625.2 MIU/ML (<4.2)
[2024-11-13 13:41] LABS: Trichomonas vaginalis (AMP) NOT DETECTED (NEGATIVE)
[2024-11-13 14:04] LABS: GC DNA AMPLIFICATION NEGATIVE (NEGATIVE)
[2024-11-13 14:29] LABS: CK-MB VALUE MASS < 1.0 NG/ML (<3.6)
[2024-11-13 14:30] LABS: CPK CREATINE PHOSPHOKINASE 58 U/L (34-145)
[2024-11-13 15:30] VITALS: BP 128/75; TEMP 97; O2SAT 100
== END 2024-11-13 15:33 | disposition home or self-care (01) ==
LOC: M ED 10:17
DX: O26.891 Other specified pregnancy related conditions, first trimester (principal); M54.50 Low back pain, unspecified; R10.9 Unspecified abdominal pain; Z3A.09 9 weeks gestation of pregnancy; O99.411 Diseases of the circulatory system complicating pregnancy, first trimester; I48.91 Unspecified atrial fibrillation; O98.411 Viral hepatitis complicating pregnancy, first trimester; O99.321 Drug use complicating pregnancy, first trimester; O99.331 Smoking (tobacco) complicating pregnancy, first trimester; O99.341 Other mental disorders complicating pregnancy, first trimester; F41.9 Anxiety disorder, unspecified; F31.9 Bipolar disorder, unspecified; Z88.0 Allergy status to penicillin; Z88.1 Allergy status to other antibiotic agents; Z91.030 Bee allergy status; Z79.899 Other long term (current) drug therapy

== ENCOUNTER 2024-11-18 02:40 | Emergency (ER) | payer OTHER ==
[~2024-11-18] VITALS: Ht 157.5 cm; Wt 89.0 kg
[2024-11-18] MEDS: FAMOTIDINE 20 MG/2 ML VIAL IVP ONE (03:59)
[2024-11-18] MEDS: diphenhydrAMINE 50 MG/ML VIAL IV ONE (03:59)
[2024-11-18] MEDS ORDERED: PRED20TA PO (07:47)
[2024-11-18] MEDS ORDERED: BENA25CA4 PO (07:47)
[2024-11-18 08:31] VITALS: BP 110/56; TEMP 98.1; O2SAT 98
== END 2024-11-18 08:41 | disposition home or self-care (01) ==
LOC: M ED 02:40
DX: L50.9 Urticaria, unspecified (principal); J45.909 Unspecified asthma, uncomplicated; F17.290 Nicotine dependence, other tobacco product, uncomplicated; Z88.0 Allergy status to penicillin; Z88.1 Allergy status to other antibiotic agents; Z91.030 Bee allergy status; Z79.52 Long term (current) use of systemic steroids; Z79.899 Other long term (current) drug therapy
CPT/HCPCS: 96374; 99284; J1200; J1308; J2919

== ENCOUNTER → 2024-11-20 | Outpatient (REF) | payer OTHER ==
[~2024-11-20] MED LIST changes: +BENA25CA4 PO
[2024-11-20 21:02] LABS: Trichomonas vaginalis (AMP) NOT DETECTED (NEGATIVE)
[2024-11-20 21:25] LABS: GC DNA AMPLIFICATION NEGATIVE (NEGATIVE)
== END ==
LOC: M PLALAB 15:41
PROVIDERS: ATTEND Student in an Organized Health Care Education/Training Program
DX: Z34.80 Encounter for supervision of other normal pregnancy, unspecified trimester (principal)

== ENCOUNTER 2024-12-07 17:44 | Emergency (ER) | payer OTHER ==
[~2024-12-07] VITALS: Ht 157.5 cm; Wt 96.8 kg
[2024-12-07 18:37] LABS: BASO # 0.0 10^3/uL (0.0-0.2); BASO % 0.1 % (0.0-1.0); EOS # 0.0 10^3/uL (0.0-0.5); EOS % 0.0 % (0.0-3.0); LYMPH # 0.7 10^3/uL (1.5-5.0); LYMPH % 5.6 % (24.0-44.0); MONO # 0.3 10^3/uL (0.0-0.8); MONO % 2.0 % (2.0-8.0); NEUTROPHILS # 11.6 10^3/uL (1.5-8.5); NEUTROPHILS % 91.4 % (36.0-66.0); PLATELET COUNT, AUTOMATED 231 10^3/uL (150-450)
[2024-12-07 18:57] LABS: CALCIUM LEVEL 8.8 MG/DL (8.5-10.1); CARBON DIOXIDE LEVEL 21 MMOL/L (20-31); CHLORIDE LEVEL 105 MMOL/L (98-107); CREATININE FOR GFR 0.65 MG/DL (0.55-1.30); GLOMERULAR FILTRATION RATE > 90.0 (>60); POTASSIUM SERUM 4.1 MMOL/L (3.5-5.1); SODIUM LEVEL 138 MMOL/L (136-145)
[2024-12-07 19:59] LABS: ALT/SGPT 17 U/L (7.0-40); AST/SGOT 17 U/L (<34)
[2024-12-07 20:09] LABS: HCG, SERUM QUANTITATIVE 72505.6 MIU/ML (<4.2)
[2024-12-07 20:59] LABS: KETONE, URINE AUTO RFX NEGATIVE (NEGATIVE); LEUKOCYTE ESTERASE UR AUTO RFX NEGATIVE (NEGATIVE); MUCUS, URINE RFX SMALL (NEGATIVE); NITRITE, URINE AUTO RFX NEGATIVE (NEGATIVE); RBC, URINE AUTO RFX 0 /HPF (0-3); SQUAM EPITHELIAL CELL UR AURFX 0 /HPF (0-6); WBC, URINE AUTO RFX 0 /HPF (0-3)
[2024-12-07 22:29] VITALS: BP 145/96; TEMP 98.8; O2SAT 99
== END 2024-12-07 22:58 | disposition home or self-care (01) ==
LOC: M ED 17:44
DX: Z34.00 Encounter for supervision of normal first pregnancy, unspecified trimester (principal); G40.909 Epilepsy, unspecified, not intractable, without status epilepticus; F41.9 Anxiety disorder, unspecified; F32.A Depression, unspecified; F43.10 Post-traumatic stress disorder, unspecified; Z88.0 Allergy status to penicillin; Z88.1 Allergy status to other antibiotic agents; Z91.030 Bee allergy status; Z79.52 Long term (current) use of systemic steroids; Z79.899 Other long term (current) drug therapy

== ENCOUNTER 2025-01-11 13:51 | Emergency (ER) | payer OTHER ==
[~2025-01-11] VITALS: Ht 167.6 cm; Wt 131.8 kg
[2025-01-11 14:03] VITALS: TEMP 99.1
[2025-01-11 15:28] LABS: BASO # 0.0 10^3/uL (0.0-0.2); BASO % 0.2 % (0.0-1.0); EOS # 0.0 10^3/uL (0.0-0.5); EOS % 0.2 % (0.0-3.0); LYMPH # 1.1 10^3/uL (1.5-5.0); LYMPH % 12.1 % (24.0-44.0); MONO # 0.6 10^3/uL (0.0-0.8); MONO % 6.4 % (2.0-8.0); NEUTROPHILS # 7.4 10^3/uL (1.5-8.5); NEUTROPHILS % 80.6 % (36.0-66.0); PLATELET COUNT, AUTOMATED 188 10^3/uL (150-450)
[2025-01-11 16:01] LABS: CALCIUM LEVEL 8.5 MG/DL (8.5-10.1); CARBON DIOXIDE LEVEL 25 MMOL/L (20-31); CHLORIDE LEVEL 106 MMOL/L (98-107); CREATININE FOR GFR 0.50 MG/DL (0.55-1.30); GLOMERULAR FILTRATION RATE > 90.0 (>60); POTASSIUM SERUM 3.8 MMOL/L (3.5-5.1); SODIUM LEVEL 140 MMOL/L (136-145)
[2025-01-11] MEDS ORDERED: FIOR1CAP PO (18:58)
[2025-01-11] MEDS: NS (Normal Saline) 0.9% 1,000 ML IV ONE (19:13)
[2025-01-11] MEDS: diphenhydrAMINE 50 MG/ML VIAL IV ONE (19:13)
[2025-01-11] MEDS: ACETAMINOPHEN *IV* 1,000 MG in IV 1 EA IV ONE (19:13)
[2025-01-11 20:00] VITALS: BP 119/60
[2025-01-11 21:00] VITALS: O2SAT 96
== END 2025-01-11 21:30 | disposition home or self-care (01) ==
LOC: EDBD 13:51 → M ED 13:51
DX: O99.352 Diseases of the nervous system complicating pregnancy, second trimester (principal); G43.909 Migraine, unspecified, not intractable, without status migrainosus; Z3A.18 18 weeks gestation of pregnancy; Z88.0 Allergy status to penicillin; Z88.1 Allergy status to other antibiotic agents; Z91.030 Bee allergy status; Z79.1 Long term (current) use of non-steroidal anti-inflammatories (NSAID); Z79.899 Other long term (current) drug therapy; Z79.52 Long term (current) use of systemic steroids
CPT/HCPCS: 80048; 85025; 96365; 96366; 96375; 99284; J0134; J1200; J2765

== ENCOUNTER → 2025-01-12 | Outpatient (CLI) | payer OTHER ==
[~2025-01-12] MED LIST changes: +FIOR1CAP PO
== END ==
LOC: M WHC 12:31
PROVIDERS: ATTEND Advanced Practice Midwife
DX: Z34.80 Encounter for supervision of other normal pregnancy, unspecified trimester (principal)